=== PATIENT | female | born 1960 | race Caucasian/White ===

== ENCOUNTER → 2016-03-09 | Outpatient (CLI) | payer MEDICAID, OTHER ==
[~2016-03-09] MED LIST: AMOXICILLIN 8751 TAB PO; ASPIRIN E.C. 8181 MG PO; CANA300T PO; CINNAMON500 MG PO; DESYREL 50MG50 MG PO; DIOVAN 160MG160 MG PO; DIOVAN 40MG40 MG; FISH OIL1000 MG PO; GLUCOTROL10 MG PO; HCTZ 25MG25 MG PO; LASIX 20MG TABL20 MG PO; LASIX 40MG TABL40 MG PO; LEVAQUIN 5500 MG/TA1 PO; LIPITOR 10MG10 MG PO; LIPITOR20 MG PO; LOPRESSOR 550 MG/TAB PO; MAREPA1200 MG PO; METFORMIN1000 MG PO; MULTI VITAMINS1 TAB PO; NEXIUM 40MG40 MG PO; NIASPAN500 MG PO; NORCO 325 MG-51 TAB PO; NORCO 325 MG-7.1 TAB PO; OMEPRAZOLE20 M2 PO; ONGLYZA5 MG PO; PROFERRIN ES12 MG; SYMAX-SR0.375 MG PO; TOPCARE ASPIRI325 MG PO; TYLENOL 325MG325 MG PO; ULTRAM 50MG TAB50 MG PO; VIIBRYD40 MG PO; VITAMIN B121000 MC2 PO; VITAMIN D31000 IU PO; VTAMINC250TA; XANAX .25M0.25 MG/TA PO; XARELTO20 MG PO
== END ==
LOC: EUO 15:30
DX: Z53.9 Procedure and treatment not carried out, unspecified reason (principal)

== ENCOUNTER 2016-03-23 16:00 | Outpatient (RCR) | payer MEDICAID ==
[2016-02-22 16:21] VITALS: BP 151/63; PULSE 80; TEMP 98.4
[2016-03-02 16:13] VITALS: BP 173/80; PULSE 75; TEMP 98.1
[2016-03-09 16:55] VITALS: BP 178/83; PULSE 77; TEMP 97.8
== END 2016-03-25 09:50 | disposition still patient (30) ==
LOC: EUO 16:00
DX: Z48.00 Encounter for change or removal of nonsurgical wound dressing (principal); M14.672 Charcot's joint, left ankle and foot; E11.621 Type 2 diabetes mellitus with foot ulcer; L97.529 Non-pressure chronic ulcer of other part of left foot with unspecified severity
CPT/HCPCS: 13919; 14933; 17717; 17719; 18867; 27516; A6207; A6209; A6212; G0463; Q4101

== ENCOUNTER → 2016-03-25 | Outpatient (CLI) | payer MEDICAID | LOC: WCC 10:06 | DX: L02.612 Cutaneous abscess of left foot (principal); E11.610 Type 2 diabetes mellitus with diabetic neuropathic arthropathy; E11.621 Type 2 diabetes mellitus with foot ulcer | CPT/HCPCS: 17717; 27517; A6207; A6212; G0463 ==

== ENCOUNTER → 2016-04-08 | Outpatient (CLI) | payer MEDICAID | LOC: WCC 03-30 08:36 | DX: E11.621 Type 2 diabetes mellitus with foot ulcer (principal); L97.529 Non-pressure chronic ulcer of other part of left foot with unspecified severity; E11.610 Type 2 diabetes mellitus with diabetic neuropathic arthropathy; L02.612 Cutaneous abscess of left foot | CPT/HCPCS: 18867; 27517; A6207; A6209; G0463 ==

== ENCOUNTER → 2016-04-15 | Outpatient (CLI) | payer MEDICAID | LOC: WCC 10:25 | DX: E11.621 Type 2 diabetes mellitus with foot ulcer (principal); L97.529 Non-pressure chronic ulcer of other part of left foot with unspecified severity; E11.610 Type 2 diabetes mellitus with diabetic neuropathic arthropathy | CPT/HCPCS: 17717; 27510; A6197; A6212; G0463 ==

== ENCOUNTER → 2016-04-25 | Outpatient (CLI) | payer MEDICAID | LOC: WCC 11:12 | DX: E11.621 Type 2 diabetes mellitus with foot ulcer (principal); L97.529 Non-pressure chronic ulcer of other part of left foot with unspecified severity; E11.610 Type 2 diabetes mellitus with diabetic neuropathic arthropathy | CPT/HCPCS: 27510; A6197; G0463 ==

== ENCOUNTER → 2016-05-11 | Outpatient (CLI) | payer MEDICAID | LOC: WCC 09:40 | DX: E11.621 Type 2 diabetes mellitus with foot ulcer (principal); L97.529 Non-pressure chronic ulcer of other part of left foot with unspecified severity; E11.610 Type 2 diabetes mellitus with diabetic neuropathic arthropathy | CPT/HCPCS: 17717; 27510; A6197; A6212; G0463 ==

== ENCOUNTER → 2016-05-25 | Outpatient (CLI) | payer MEDICAID | LOC: WCC 10:59 | DX: E11.621 Type 2 diabetes mellitus with foot ulcer (principal); L97.529 Non-pressure chronic ulcer of other part of left foot with unspecified severity | CPT/HCPCS: 13919; 21064; 27510; A6021; A6197; G0463 ==

== ENCOUNTER → 2016-06-08 | Outpatient (CLI) | payer MEDICAID | LOC: WCC 11:02 | DX: E11.621 Type 2 diabetes mellitus with foot ulcer (principal); L97.529 Non-pressure chronic ulcer of other part of left foot with unspecified severity; L02.612 Cutaneous abscess of left foot | CPT/HCPCS: 17717; 18806; 27517; A6197; A6207; A6212; G0463 ==

== ENCOUNTER → 2016-06-16 | Outpatient (CLI) | payer MEDICAID | LOC: WCC 10:01 | DX: E11.621 Type 2 diabetes mellitus with foot ulcer (principal); E11.610 Type 2 diabetes mellitus with diabetic neuropathic arthropathy; L97.529 Non-pressure chronic ulcer of other part of left foot with unspecified severity | CPT/HCPCS: 13919; 17717; 27517; A6207; A6212; G0463 ==

== ENCOUNTER → 2016-06-22 | Outpatient (CLI) | payer MEDICAID | LOC: WCC 10:33 | DX: E11.621 Type 2 diabetes mellitus with foot ulcer (principal); E11.610 Type 2 diabetes mellitus with diabetic neuropathic arthropathy; L97.529 Non-pressure chronic ulcer of other part of left foot with unspecified severity | CPT/HCPCS: 13919; 17716; 27510; 27517; A6197; A6207; A6212; G0463 ==

== ENCOUNTER → 2016-07-06 | Outpatient (CLI) | payer MEDICAID | LOC: WCC 08:53 | DX: E11.621 Type 2 diabetes mellitus with foot ulcer (principal); E11.610 Type 2 diabetes mellitus with diabetic neuropathic arthropathy | CPT/HCPCS: 13919; 18867; 27517; A6207; A6209; G0463 ==

== ENCOUNTER → 2016-07-20 | Outpatient (CLI) | payer MEDICAID | LOC: WCC 09:07 | DX: E11.621 Type 2 diabetes mellitus with foot ulcer (principal); E11.610 Type 2 diabetes mellitus with diabetic neuropathic arthropathy | CPT/HCPCS: 17716; A6212 ==

== ENCOUNTER → 2016-08-16 | Outpatient (CLI) | payer MEDICARE, MEDICAID | LOC: WCC 09:49 | DX: E11.610 Type 2 diabetes mellitus with diabetic neuropathic arthropathy (principal) | CPT/HCPCS: 13919; 17717; 27516; A6207; A6212; G0463 ==

== ENCOUNTER → 2016-08-23 | Outpatient (CLI) | payer MEDICARE, MEDICAID | LOC: WCC 08:24 | DX: E11.621 Type 2 diabetes mellitus with foot ulcer (principal); E11.610 Type 2 diabetes mellitus with diabetic neuropathic arthropathy | CPT/HCPCS: 13919; 16847; 17716; 27516; A6207; A6212; G0463 ==

== ENCOUNTER → 2016-08-31 | Outpatient (CLI) | payer MEDICARE, MEDICAID | LOC: WCC 09:47 | DX: E11.621 Type 2 diabetes mellitus with foot ulcer (principal); E11.610 Type 2 diabetes mellitus with diabetic neuropathic arthropathy | CPT/HCPCS: 13919; 17716; A6212; G0463 ==

== ENCOUNTER → 2016-09-08 | Outpatient (CLI) | payer MEDICARE, MEDICAID | LOC: WCC 09:37 | DX: E11.621 Type 2 diabetes mellitus with foot ulcer (principal); L97.529 Non-pressure chronic ulcer of other part of left foot with unspecified severity; M14.672 Charcot's joint, left ankle and foot | CPT/HCPCS: 13919; 17717; 27516; A6207; A6212; G0463 ==

== ENCOUNTER → 2016-09-15 | Outpatient (CLI) | payer MEDICARE, MEDICAID | LOC: WCC 10:30 | DX: E11.621 Type 2 diabetes mellitus with foot ulcer (principal); L97.529 Non-pressure chronic ulcer of other part of left foot with unspecified severity; M14.672 Charcot's joint, left ankle and foot | CPT/HCPCS: 13919; 17716; 27516; A6207; A6212; G0463 ==

== ENCOUNTER → 2016-09-22 | Outpatient (CLI) | payer MEDICARE, MEDICAID | LOC: WCC 12:44 | DX: E11.621 Type 2 diabetes mellitus with foot ulcer (principal); L97.529 Non-pressure chronic ulcer of other part of left foot with unspecified severity | CPT/HCPCS: 13919; 17717; 27516; A6207; A6212; G0463 ==

== ENCOUNTER → 2016-09-29 | Outpatient (CLI) | payer MEDICARE, MEDICAID | LOC: WCC 09:22 | DX: E11.621 Type 2 diabetes mellitus with foot ulcer (principal); L97.529 Non-pressure chronic ulcer of other part of left foot with unspecified severity; E11.610 Type 2 diabetes mellitus with diabetic neuropathic arthropathy | CPT/HCPCS: 13919; 17716; A6212; G0463 ==

== ENCOUNTER → 2016-10-05 | Outpatient (CLI) | payer MEDICARE, MEDICAID | LOC: WCC 10:11 | DX: E11.621 Type 2 diabetes mellitus with foot ulcer (principal); L97.529 Non-pressure chronic ulcer of other part of left foot with unspecified severity; M14.672 Charcot's joint, left ankle and foot | CPT/HCPCS: 13919; 17717; 27517; A6207; A6212 ==

== ENCOUNTER → 2016-10-21 | Outpatient (CLI) | payer MEDICARE, MEDICAID | LOC: WCC 10-19 08:51 | DX: E11.621 Type 2 diabetes mellitus with foot ulcer (principal); L97.529 Non-pressure chronic ulcer of other part of left foot with unspecified severity; M14.672 Charcot's joint, left ankle and foot; L02.612 Cutaneous abscess of left foot | CPT/HCPCS: 16847; 17716; 17717; 27516; A6207; A6212 ==

== ENCOUNTER → 2016-10-28 | Outpatient (CLI) | payer MEDICARE, MEDICAID | LOC: WCC 09:06 | DX: E11.621 Type 2 diabetes mellitus with foot ulcer (principal); M14.672 Charcot's joint, left ankle and foot | CPT/HCPCS: 17717; 27516; A6207; A6212 ==

== ENCOUNTER → 2016-11-04 | Outpatient (CLI) | payer MEDICARE, MEDICAID | LOC: WCC 09:02 | DX: E11.621 Type 2 diabetes mellitus with foot ulcer (principal); L97.509 Non-pressure chronic ulcer of other part of unspecified foot with unspecified severity; M14.672 Charcot's joint, left ankle and foot | CPT/HCPCS: 17716; A6212 ==

== ENCOUNTER → 2016-11-11 | Outpatient (CLI) | payer MEDICARE, MEDICAID | LOC: WCC 11:03 | DX: E11.621 Type 2 diabetes mellitus with foot ulcer (principal); L97.529 Non-pressure chronic ulcer of other part of left foot with unspecified severity; M14.672 Charcot's joint, left ankle and foot | CPT/HCPCS: 18867; 27517; A6207; A6209 ==

== ENCOUNTER → 2016-11-18 | Outpatient (CLI) | payer MEDICARE, MEDICAID, OTHER | LOC: WCC 11-17 08:47 | DX: E11.621 Type 2 diabetes mellitus with foot ulcer (principal); M14.672 Charcot's joint, left ankle and foot | CPT/HCPCS: 13919; G0463 ==

== ENCOUNTER → 2016-11-25 | Outpatient (CLI) | payer MEDICARE, MEDICAID | LOC: WCC 11-21 09:48 | DX: E11.621 Type 2 diabetes mellitus with foot ulcer (principal); L97.529 Non-pressure chronic ulcer of other part of left foot with unspecified severity; M14.672 Charcot's joint, left ankle and foot | CPT/HCPCS: 17717; A6212; G0463 ==

== ENCOUNTER → 2016-12-02 | Outpatient (CLI) | payer MEDICARE, MEDICAID | LOC: WCC 08:35 | DX: E11.621 Type 2 diabetes mellitus with foot ulcer (principal); L97.529 Non-pressure chronic ulcer of other part of left foot with unspecified severity | CPT/HCPCS: 17717; A6212; G0463 ==

== ENCOUNTER → 2016-12-09 | Outpatient (CLI) | payer MEDICARE, MEDICAID | LOC: WCC 13:08 | DX: E11.621 Type 2 diabetes mellitus with foot ulcer (principal); L97.529 Non-pressure chronic ulcer of other part of left foot with unspecified severity; M14.672 Charcot's joint, left ankle and foot | CPT/HCPCS: 17716; A6212; G0463 ==

== ENCOUNTER → 2016-12-16 | Outpatient (CLI) | payer MEDICARE, MEDICAID | LOC: WCC 12-15 10:21 | DX: E11.621 Type 2 diabetes mellitus with foot ulcer (principal); L97.529 Non-pressure chronic ulcer of other part of left foot with unspecified severity; M14.672 Charcot's joint, left ankle and foot | CPT/HCPCS: 17717; 27510; A6197; A6212; G0463 ==

== ENCOUNTER → 2017-05-19 | Outpatient (CLI) | payer MEDICARE | LOC: MC.RAD 02-06 13:40 | DX: Z12.31 Encounter for screening mammogram for malignant neoplasm of breast (principal) ==

== ENCOUNTER → 2018-06-12 | Outpatient (CLI) | payer MEDICARE, MEDICAID | LOC: MC.RAD 10:03 | DX: Z12.31 Encounter for screening mammogram for malignant neoplasm of breast (principal) ==

== ENCOUNTER → 2018-06-20 | Outpatient (CLI) | payer MEDICARE, MEDICAID | LOC: COL.VAS 13:37 | DX: Z01.810 Encounter for preprocedural cardiovascular examination (principal); I08.0 Rheumatic disorders of both mitral and aortic valves ==

== ENCOUNTER → 2018-06-27 | Outpatient (CLI) | payer MEDICARE, MEDICAID ==
[~2018-06-27] VITALS: Ht 167.6 cm; Wt 118.8 kg
[~2018-06-27] MED LIST changes: +ATACAND32 MG PO; +JANUVIA 100MG100 MG PO; +LIPITOR 80MG80 MG PO; +NEXIUM 20MG20 MG PO; +PRILOSEC 20MG20 MG PO; +TOPROL XL100 MG PO
[2018-06-27 11:30] VITALS: BP 213/111; PULSE 64
--- NOTE | 2018-06-27 11:45 | NUR ---
bp rechecked several times. 227/106, 235/112, 232/115. Informed Dr Bauman of pts bp. States he is ok to proceed.
[2018-06-27 13:10] VITALS: BP 225/107; PULSE 58
[2018-06-27 13:48] LABS: GLUCOSE,PLEURAL FLUID 85 mg/dL
[2018-06-27 13:49] LABS: PLEURAL FLUID RBC 0 /mm3 (0-0); PLEURAL FLUID WBC 665 /mm3; TOTAL PROTEIN,PLEURAL FLUID < 2.0 gm/dL
[2018-06-27 13:53] LABS: PLEURAL FLUID APPEARANCE CLEAR; PLEURAL FLUID COLOR YELLOW
== END ==
LOC: COL.RAD 11:13
PROVIDERS: Internal Medicine
DX: J90 Pleural effusion, not elsewhere classified (principal)

== ENCOUNTER 2018-07-19 12:48 | Inpatient (IN) | payer MEDICARE, MEDICAID ==
[~2018-07-19] VITALS: Ht 167.6 cm; Wt 111.4 kg
[~2018-07-19 12:48] MED LIST changes: +APRESOLINE 25MG25 MG PO; +LOPRESSOR100 MG PO; +NORVASC2.5 MG PO; -TOPROL XL100 MG PO; +VENTOLIN0.09 MG IH
--- NOTE | 2018-07-19 17:10 | NUR ---
Report from ARLETTE Zavala. Pt brought from Room 342 to 340 via bed.
--- NOTE | 2018-07-19 17:14 | NUR ---
Removed pt's home meds from room/belongnings: yellow and purple am/pm 7 day pill sorter, prescription bottle of hydralazine, and ventolin inhaler. To med room bin for safe keeping.
[2018-07-19 18:15] VITALS: BP 140/55; PULSE 68; TEMP 99.9
[2018-07-19 19:38] VITALS: BP 146/55; PULSE 68; TEMP 99.9
--- NOTE | 2018-07-19 19:53 | NUR ---
Pt's sister and sister's visited and left. Pt given [place] for pain. Report to ARLETTE Bailey. Pt in bed with alarm on. Call lt in reach.
[2018-07-20 05:25] VITALS: BP 147/58; PULSE 56; TEMP 98.3
--- NOTE | 2018-07-20 05:30 | NUR ---
BLOOD SUGAR 60. TREATED WITH OJ. PT ALITTLE CONFUSED, CLAMMY.
--- NOTE | 2018-07-20 06:12 | NUR ---
BLOOD SUGAR 64. GAVE OJ AND PEANUT BUTTER. PT MOANING LT STUMP VERY PAINFUL. ELEVATED ON PILLOWS. SEE MAR FOR PAIN MED GIVEN.
--- NOTE | 2018-07-20 06:41 | NUR ---
ACCUCHECK NOW 79. PT RESTING AT THIS TIME.
--- NOTE | 2018-07-20 10:30 | NUR ---
Patient is sitting up in the wheel chair. She got up with therapy. She is very uncomfortable and is not tolerating sitting up. She keeps asking about getting her brace taken off. Explained why she has to wear it and that the ortho surgeon wants her to keep it on at all times. She is not eating well. She needs a lot of encouragement to eat and drink. No other changes at this time. Call light within reach.
--- NOTE | 2018-07-20 12:06 | NUR ---
Follow-up visit; Patient thanked [employer] for looking in on her again today and for offering her blessings.
[2018-07-20 16:01] VITALS: BP 137/63; PULSE 55; TEMP 97.9
--- NOTE | 2018-07-20 16:50 | NUR ---
At 1600 patients blood glucose was 51. She had some ice cream and 1/2 a protein shake. At 1630 her glucose only came up to 54. One amp of D50 given at this time. Discussed with patient the importance of eating her meals. She is drowsy at this time and is not able to answer questions appropriately. Explained once she eats and is more awake she can have something for pain. She continues to have pain to her back and buttock area. Encouraged her to turn off her backside throughout the day. No other changes at this time. Call light within reach. Will continue to monitor.
--- NOTE | 2018-07-20 18:00 | NUR ---
Patient glucose is up to 132. She is eating at this time. She is more alert now and pain seems better controlled at this time. Did not give norco at this time. No complaints of nausea. She had family here this afternoon. Her accu checks have been changed to q4 for today and insulin has been reduced to low dose sliding scale. No other changes at this time. Call light within reach.
--- NOTE | 2018-07-20 21:00 | NUR ---
REPORT RECEIVED. 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 ASSESSMENT COMPLETE. NOTED TO HAVE REDNESS TO COCCYX AREA-NO OPEN AREAS NOTED. C/O PAIN IN THIS AREA-TEACHING DONE ON IMPORTANCE OF FREQUENT REPOSITIONING. APPLIED BARRIER TO AREA AND TURNED TO RIGHT SIDE WITH PILLOW SUPPORTS. TEACHING DONE ON EVERY TWO HOUR TURNING TO KEEP PRESSURE OFF THIS AREA. VERBALIZES UNDERSTANDING. ALSO C/O PAIN TO LEFT LOWER EXTREMITY. BRACE REMOVED AND REPLACED IT HAD SHIFTED. FRESH ICE PACK APPLIED. NORCO GIVEN PER DR ORDER. VOIDING WITHOUT DIFFICULTY. PASSING GAS. DENIES QUESTIONS AT THIS TIME. BED IN LOW POSITION, ALARM ON, WHEELS LOCKED AND CALL LIGHT WITHIN REACH. WILL MONITOR.
--- NOTE | 2018-07-21 04:25 | NUR ---
GLUCOSE 59. CONFUSED CALLING SELF AN IDIOT STATING "IM CRAZY." GIVEN ORANGE JUICE 240MLS AND CRACKERS WITH PEANUT BUTTER.
[2018-07-21 04:55] VITALS: BP 148/65; PULSE 62; TEMP 98
--- NOTE | 2018-07-21 06:20 | NUR ---
GLUCOSE LEVEL SLOWLY NORMALIZED. GIVEN A TOTAL OF 360 OF ORANGE JUICE AND CRACKERS WITH PEANUT BUTTER. 0620 GLUCOSE 82. WILL MONITOR.
[2018-07-21 08:12] LABS: BASO % 0.6 % (0.0-2.0); EOS # 0.2 (0.0-0.7); EOS % 3.2 % (0-4.0); GRAN # 5.4 (1.4-6.5); GRAN % 74.2 % (42.2-75.2); MEAN CELL VOLUME 83 fl (80.0-100.0); MEAN CORPUSCULAR HEMOGLOBIN 24 pg (27.0-31.0); MEAN CORPUSCULAR HGB CONC 29 g/dl (33.0-37.0); MEAN PLATELET VOLUME 9.6 fl (7.4-10.4); MONO # 0.5 (0.1-0.6); MONO % 7.3 % (1.7-9.3); PLATELET COUNT 191 K/mm3 (130-400); RED BLOOD COUNT 2.89 M/mm3 (4.10-5.30); REDCELL DISTRIBUTION WIDTH-CV 15.6 % (11.5-14.5)
[2018-07-21 08:24] LABS: CALCIUM 8.3 mg/dL (8.4-10.2); MAGNESIUM 2.4 mg/dL (1.6-2.3); POTASSIUM 5.5 mmol/L (3.4-5.0)
[2018-07-21 08:26] LABS: CREATININE, serum 5.24 (0.52-1.25)
--- NOTE | 2018-07-21 09:05 | NUR ---
SW attempted to meet with the patient; the patient was not in his room. SW will attempt at a later time.
--- NOTE | 2018-07-21 11:57 | NUR ---
Report from ARLETTE Kline. Pt ate very little breakfast in bed, needed to toilet, max one assist to BSC pivoted with gait belt, assist with dressing, two assist off BSC then switched to WC. Attended therapies. Does have some confusion, cog delays, pleasant, alert, partially oriented at times. Moderate cues for safety. Immobilizer and moon wrap to Left stump in place.
--- NOTE | 2018-07-21 13:29 | NUR ---
PHILLIP met with the patient to discuss a discharge plan. The patient lives alone about a mile outside of [place] and has a [place] address. The patient has a walker and a knee walker. The patient's PCP is Dr. Vallejo. However, once Dr. Vallejo moves; her PCP will be Dr. Coyle. The patient receives her medications from [facility] and reports no difficulties obtaining them. The patient does not have advanced directives in the EMR, but reports she does have them completed. PHILLIP will continue to follow.
--- NOTE | 2018-07-21 13:42 | NUR ---
Sister and sister in law visiting. Pt to chair with alarm on.
--- NOTE | 2018-07-21 13:43 | NUR ---
Returned double sided weekly pill sorter, ventolin inhaler, and hydralazine pill bottle to sister to take home.
[2018-07-21 17:07] VITALS: BP 139/66; PULSE 57; TEMP 98.1
--- NOTE | 2018-07-21 17:53 | NUR ---
Second "Rehab Cocktail" of OJ, AJ, & Prune Juice w/ Miralax given. Pt shaking, BG stable, loosened immobilizer d/t LLE pain, pt refusing suppository at this time.
--- NOTE | 2018-07-21 20:00 | NUR ---
REPORT RECEIVED. 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 ASSESSMENT COMPLETE. VS HAVE BEEN STABLE. UP TO TOILET USING LIFT-LARGE BOWL MOVEMEMNT-FORMED/SOFT. [id number] DIFFICULTY. ASSISTED WITH DRESSING FOR BED. BEDSIDE GLUCOSE 143. REFUSING DINNER-STATED "THE SIGHT MAKES ME WANT TO PUKE." DID HAVE SOME CRACKERS AND PEANUT BUTTER, CHIPS AND A GLUCERNA SHAKE. ENCOURAGED FLUID INTAKE. DID DRINK ABOUT 120MLS OF WATER. STILL SEEMS CONFUSED-ASKING "WHERE AM I AT" OR "AM I IN [place]." C/O "ITCHY SKIN" DID APPLY LOTION TO BACK, ARMS, THIGHS AND RIGHT LEG. STATES IT HAS HELPED. STATES PAIN IS GETTING BETTER SINCE EARLIER DOSE OF NORCO. REPOSITIONED ON RIGHT SIDE USING PILLOWS. FRESH ICE APPLIED TO LEFT KNEE. BED IN LOW POSITION, WHEELS LOCKED, CALL LIGHT WITHIN REACH WITH REMINDER HOW TO USE. BED ALARM ON. WILL MONITOR.
[2018-07-21 20:27] VITALS: BP 149/70; PULSE 61; TEMP 98.2
--- NOTE | 2018-07-21 20:51 | NUR ---
Pt shaking since around supper time. Repeats, "Oh, Jonn" and at shift change pt asked nurse not to leave her. Enc given, used lift to get to toilet, then pt had cont Lg BM, undressed and donned gown for lilly, returned to bed with lift and assist of night nurse, immobilizer in place. Pt drank marques glucerna mixed with a marques ice cream for supper with meds. Air mattress on bed, alarm on. Pt still confused. Report to ARLETTE Kline including needing to collect random urine for lab.
--- NOTE | 2018-07-22 01:00 | NUR ---
UP TO BATHROOM USING LIFT. STATES SHE NEEDS TO HAVE A BOWEL MOVEMENT. DENIES PAIN-ONLY EXTREME URGE TO HAVE A BOWEL MOVEMENT. PASSED A LOT OF GAS. LARGE LOOSE BOWEL MOVEMENT. VOIDED-SENT TO LAB.
--- NOTE | 2018-07-22 04:07 | NUR ---
HAS BEEN MUCH MORE ALERT AND ORIENTED THIS SHIFT COMPARED TO 07/21. DENIES PAIN. NO HYPOGLYCEMIC EPISODES. DID NOT EAT SUPPER BUT IS DRINKING MORE FLUIDS. HAS BEEN UP TO TOILET USING LIFT-TOLERATED WELL. IMMOBOLIZER TO LEFT LOWER EXTREMITY ADJUSTED- ICE APPLIED. DENIES ANY NEEDS. WILL MONITOR.
[2018-07-22 05:00] VITALS: BP 146/64; PULSE 56; TEMP 97.9
[2018-07-22 07:46] LABS: CALCIUM 8.5 mg/dL (8.4-10.2)
[2018-07-22 07:47] LABS: CREATININE, serum 4.56 (0.52-1.25)
[2018-07-22 07:48] LABS: POTASSIUM 6.1 mmol/L (3.4-5.0)
--- NOTE | 2018-07-22 07:58 | NUR ---
Critical labs called to Dr. Roger, see new orders.
--- NOTE | 2018-07-22 08:23 | NUR ---
Report from ARLETTE Kline. Another staff informed this nurse that pt was crying this morning, entered room and pt not tearful, but uncomfortable from LLE, loosened immobilizer to LLE and applied lotion as pt states it itched. Enc pt to eat breakfast, had only yogurt without fruit or granola. Agreeable to shake, drank marques glucerna/ice cream blended with cottage cheese. Pt called to toilet, used lift to go to toilet, passed lots of gas. Continent.
--- NOTE | 2018-07-22 11:59 | NUR ---
Dr. Roger saw pt in room.
--- NOTE | 2018-07-22 12:32 | NUR ---
Sister and in law visiting, they assisted pt with ordering meals for tomorrow. Pt toileted with lift, returned to wheelchair. Pt groomed at sink.
[2018-07-22 17:24] VITALS: BP 173/85; PULSE 65; TEMP 98.3
--- NOTE | 2018-07-22 19:53 | NUR ---
Near shift change pt became anxious, states she can't catch her breath, labored, restless, LCTA when sitting upright at 90* on edge of bed, enc focused breathing, SpO2 >92%, instructed to use I.S. Yesterday pt had similar episode, and asked nurse not to leave her. Dr. Castellano notified and ativan ordered. Brought fan for pt. Pt had requested, "Give me something to just knock me out." Report to ARLETTE Carrillo.
--- NOTE | 2018-07-22 20:00 | NUR ---
Pt bedresting at 30* quietly watching TV, requested lights off.
--- NOTE | 2018-07-22 20:15 | NUR ---
HS meds all reviewed and given. Patient up via lift to bathroom and back to bed. Reviewed new med ativan to give for anxiousness/sleep. Immobilizer LLE CDI.
--- NOTE | 2018-07-22 22:30 | NUR ---
UP via lift to bathroom and voids/back to bed. IVF finished infusing. Denies further needs.
--- NOTE | 2018-07-23 01:58 | NUR ---
PATIENT REMAINS AWAKE. UP TO BATHROOM VIA LIFT AND TO RECLINER. DENIES FURTHER NEEDS.
[2018-07-23 03:35] VITALS: BP 164/91; PULSE 70; TEMP 98
--- NOTE | 2018-07-23 04:13 | NUR ---
PATIENT HAS BEEN AWAKE THROUGH THE NIGHT UP TO BATHROOM 6 TIMES VIA LIFT TO VOID. ENCOURAGED TO ATTEMPT REST BACK IN BED/DONE. TYLENOL GIVEN.
--- NOTE | 2018-07-23 05:40 | NUR ---
PATIENT NOW RESTING IN BED WITH EYES CLOSED. REPORTS SHORTNESS OF BREATH EARLIER AND RT INTO GIVEN TREATMENT.
[2018-07-23 07:33] LABS: BASO % 0.5 % (0.0-2.0); EOS # 0.2 (0.0-0.7); EOS % 2.6 % (0-4.0); GRAN # 6.2 (1.4-6.5); GRAN % 79.3 % (42.2-75.2); LYMPH # 0.7 (1.2-3.4); LYMPH % 9.1 % (20.0-51.0); MEAN CELL VOLUME 83 fl (80.0-100.0); MEAN CORPUSCULAR HGB CONC 29 g/dl (33.0-37.0); MEAN PLATELET VOLUME 9.5 fl (7.4-10.4); MONO # 0.6 (0.1-0.6); MONO % 7.9 % (1.7-9.3); PLATELET COUNT 233 K/mm3 (130-400); REDCELL DISTRIBUTION WIDTH-CV 15.9 % (11.5-14.5)
[2018-07-23 07:44] LABS: HEMATOCRIT 25.6 % (37.0-47.0); HEMOGLOBIN 7.5 g/dl (12.5-16.0); MEAN CORPUSCULAR HEMOGLOBIN 24 pg (27.0-31.0)
[2018-07-23 07:45] LABS: CALCIUM 8.7 mg/dL (8.4-10.2); CREATININE, serum 3.65 (0.52-1.25); POTASSIUM 4.9 mmol/L (3.4-5.0)
--- NOTE | 2018-07-23 15:44 | NUR ---
Called Dr. Huntley reporting elevated BP - left message. Awaiting a return call.
[2018-07-23 15:57] VITALS: BP 203/75; BP 211/85; PULSE 100; PULSE 84; TEMP 98.1
--- NOTE | 2018-07-23 16:03 | NUR ---
NEW ORDER RECEIVED PER DR. RUBIN FOR ELEVATED SBP >180. SEE NEW ORDERS.
--- NOTE | 2018-07-23 18:04 | NUR ---
Patient has been reporting difficulty with breathing and pulse ox was taken showing oxygen of 93% and greater. Received a new order for one time dose of ativan today due to anxiety and patient did get some nausea following. See new orders per Dr. Huntley to restart xanax PRN and change patient from accuchecks Q4Hrs to ACHS since her numbers have been leveling off. Will continue to monitor.
[2018-07-23 18:15] VITALS: BP 190/67
[2018-07-23 19:06] VITALS: BP 200/81
[2018-07-23 19:14] VITALS: BP 200/81
--- NOTE | 2018-07-23 22:00 | NUR ---
Patient report received from ARLETTE Cox at this time. Per report patient's BP is elevated, preethi recheck before bed. No other needs at this time.
[2018-07-24 00:30] VITALS: BP 171/78; PULSE 71
[2018-07-24 05:20] VITALS: BP 167/72; PULSE 68; TEMP 98.1
--- NOTE | 2018-07-24 06:54 | NUR ---
Patient report given to ARLETTE Peng. Patient is resting comfortably in bed, no needs observed.
--- NOTE | 2018-07-24 07:51 | NUR ---
Report from ARLETTE Gustafson. Pt tearful this morning, stating "I don't know why I'm here," and "this isn't me" referring to how "messy" her room is. Assisted with emotional support, reason for rehab, straightening room and putting some things away.
[2018-07-24 08:38] LABS: CREATININE, serum 3.33 (0.52-1.25); POTASSIUM 4.7 mmol/L (3.4-5.0)
--- NOTE | 2018-07-24 12:56 | NUR ---
Behavioral Health called, Dr. Goldberg to come see pt on Tuesday 07/25
[2018-07-24 14:11] VITALS: BP 159/58
--- NOTE | 2018-07-24 14:41 | NUR ---
PHILLIP met with the pt to discuss the recommendation for home health services. The pt plans to stay with her sister in [place] upon discharge. Therefore, SW provided a list of home health agencies from [employer] that serve the [place] area. The pt wants to look over the choices with her sister before she makes a decision. PHILLIP will continue to follow to assist with her discharge plan.
[2018-07-24 17:17] VITALS: BP 167/64; PULSE 66; TEMP 98.3
--- NOTE | 2018-07-24 19:54 | NUR ---
Pt less anxious rest of shift. Still unreasonably apologetic about things- even if it's not her fault. Did not observe confusion after morning anxiety episode, then alert, pleasant, cooperative. Immobilizer in place, dressing intact. Fluid restriction followed. Gave tylenol thru shift and pain rated 5/10. Family visited this evening. Pt did not have anxiety episode at end of shift as she did over the weekend. Report to ARLETTE Bill. Pt ref jason in sprite, states it causes N/V. Appetite better today.
--- NOTE | 2018-07-24 20:30 | NUR ---
Shift assessment complete. Patient awake, dangling at bedside. States, 5/10 pain in left stump. Prn pain medication given. Denies further needs at this time. Will continue to assess.
[2018-07-25 05:06] VITALS: BP 155/65; PULSE 63; TEMP 98
--- NOTE | 2018-07-25 05:12 | NUR ---
Patient in bed, dangling at bedside. States, pain 4/10 in left leg. Declined pain medication. Medication list given to patient, per her request. Denies further needs at this time. Will continue to monitor.
[2018-07-25 06:35] LABS: BASO # 0.1 (0.0-0.2); EOS # 0.2 (0.0-0.7); GRAN # 3.6 (1.4-6.5); GRAN % 61.9 % (42.2-75.2); LYMPH # 1.4 (1.2-3.4); LYMPH % 23.8 % (20.0-51.0); MEAN CELL VOLUME 85 fl (80.0-100.0); MEAN CORPUSCULAR HGB CONC 29 g/dl (33.0-37.0); MEAN PLATELET VOLUME 9.8 fl (7.4-10.4); MONO # 0.5 (0.1-0.6); MONO % 8.8 % (1.7-9.3); PLATELET COUNT 247 K/mm3 (130-400); RED BLOOD COUNT 2.86 M/mm3 (4.10-5.30); REDCELL DISTRIBUTION WIDTH-CV 16.7 % (11.5-14.5)
[2018-07-25 06:39] LABS: HEMATOCRIT 24.3 % (37.0-47.0); MEAN CORPUSCULAR HEMOGLOBIN 24 pg (27.0-31.0)
[2018-07-25 06:45] LABS: CALCIUM 8.6 mg/dL (8.4-10.2); CREATININE, serum 3.2 (0.52-1.25); POTASSIUM 4.6 mmol/L (3.4-5.0)
--- NOTE | 2018-07-25 14:57 | NUR ---
SW met with the pt to present and discuss the IPR team conference note. The pt did not have any questions or concerns at this time. SW will continue to follow.
--- NOTE | 2018-07-25 15:09 | NUR ---
Peripheral IV catheter was removed from patient's left forearm and patient tolerated with no discomfort reported. No signs of infection observed to site.
[2018-07-25 18:24] VITALS: BP 152/52; PULSE 74; TEMP 98.3
--- NOTE | 2018-07-25 18:27 | NUR ---
Jose E was a one person pivot transfer today with staff. Dr. Goldberg stopped by this evening see new orders for mood meds. Patient was less anxious this shift.
--- NOTE | 2018-07-25 21:35 | NUR ---
2:1 TRANSER ASSIST TO TOILET PER W/C. PT EXPRESSES NEGATIVE THOUGHT ABOUT SELF. VERY DEFEATED. PROVIDED SOME EMOTIONAL SUPPORT. READY FOR BED. SITTING ON SIDE OF BED. HAS ANXIETY ISUES. NEW MEDS NOTED. CALL LIGHT IN REACH.
[2018-07-26 05:48] VITALS: BP 167/68; PULSE 63; TEMP 97.9
--- NOTE | 2018-07-26 05:48 | NUR ---
02 SAT 85%. O2 SET ON 2L NOW. UP TO 91%.
[2018-07-26 08:05] LABS: CALCIUM 8.8 mg/dL (8.4-10.2); CREATININE, serum 3.27 (0.52-1.25); POTASSIUM 4.5 mmol/L (3.4-5.0)
[2018-07-26 16:27] VITALS: BP 157/58; PULSE 66; TEMP 98.1
--- NOTE | 2018-07-26 19:42 | NUR ---
Jose E attended all therapies today, tolerated diet well and was interactive with staff with less anxiety today. Patient was a one person assist with pivot transfers. She was independent on grooming and eating today. She did have some pain to stump and was given prn pain meds with good effect. Did not require any insulin today blood sugars were stable. Will continue to monitor.
[2018-07-27 05:56] VITALS: BP 156/58; PULSE 64; TEMP 98.8
--- NOTE | 2018-07-27 07:00 | NUR ---
ASSISTED PT TO BR. PIVOT TRANSFER TO THEN TO TOILET. DEEPTI WELL. GOOD SPIRITS. BACK TO . READY FOR BREAKFAST.
[2018-07-27 16:04] VITALS: BP 153/54; PULSE 64; TEMP 98.2
--- NOTE | 2018-07-27 20:00 | NUR ---
HS meds along with pain med reviewed and given. Patient sits up on side of bed and denies further needs. Declines knee hi teds off RLE. Immobilizer LLE CDI. Patient alert and oriented. Declines snack.
--- NOTE | 2018-07-27 20:11 | NUR ---
Report from ARLETTE Bailey. Pt to wheelchair between therapies today, family visited this lilly, pt more clear today, some word searching. Tylenol for pain. Immobilizer tightened prior to shift change. Pt pivot transferred from wc to toilet with gait belt, mod assist, grab bar, and walker. Continent of B/B, wearing pull ups. Report to ARLETTE Carrillo.
--- NOTE | 2018-07-28 03:00 | NUR ---
Patient has been resting with eyes closed. Respirations with ease.
[2018-07-28 04:04] VITALS: BP 159/67; PULSE 63; TEMP 98.1
--- NOTE | 2018-07-28 09:23 | NUR ---
NSG ASSESSMENT COMPLETED. PT VERY CHEERFUL AND PLEASANT. PT IS 1 ASSIST PIVOT TRANSFER TO WHEELCHAIR. PT IS SLIGHTLY UNSTEADY WITH TRANSFERS. PT ATE 100 % MEAL. UP TO WHEELCHAIR AND PERFORMED ADL'S WITHOUT ASSIST. IROM BRACE IN PLACE, TEDS ON RIGHT LEG UP TO KNEES. PT WAS GIVEN TYLENOL 2 TABS FOR DISCOMFORT IN LEFT LEG. CREATININE CLEARANCE TO BE STARTED THIS AM. COLLECTIONS ITEMS IN PLACE. BS THIS AM WAS 135 AND NO SSI WAS GIVEN. HEPARIN WAS GIVEN INTO ABDOMEN, ABDOMEN HAS MULTIPLE BRUISES NOTED.
--- NOTE | 2018-07-28 11:20 | NUR ---
FAMILY AND FRIENDS PRESENT AND VISITING. BS TAKEN.
--- NOTE | 2018-07-28 13:33 | NUR ---
PT SLEEPING WITH COVERS SITTING UP IN WHEELCHAIR
--- NOTE | 2018-07-28 14:50 | NUR ---
TOOK PT TO BR TO HAVE A BM. PT WAS ABLE TO STAND WITH GRAB BARS AND PIVOT ONTO COMMODE. NURSE PROVIDED CONTACT GUARD ASSIST
[2018-07-28 15:30] VITALS: BP 148/57; PULSE 65; TEMP 98.4
--- NOTE | 2018-07-28 20:00 | NUR ---
Patient rests in bed. Declines snack. HS meds all reviewed and given along with norco for burning pain LBKA. Boris hose removed RLE and SCD applied. LLE elevated on pillow.
--- NOTE | 2018-07-29 01:15 | NUR ---
PATIENT HAS BEEN RESTING IN BED WITH EYES CLOSED. RESPIRATIONS WITH EASE.
--- NOTE | 2018-07-29 05:00 | NUR ---
Patient up to the bathroom via pivot transfer to wheelchair. Hesitant and has difficulty with pulling pants/pullup up after stands from toilet. Uses grab bar. Anxious during tranfer. Transfers self back to bed with CGA/pivot transfer. Immobilizer LLE fell off and reapplied. States pain "not bad" and denies need for pain med.
[2018-07-29 05:53] VITALS: BP 157/66; PULSE 63; TEMP 98.2
--- NOTE | 2018-07-29 10:15 | NUR ---
Pt propelled in wc in [facility] calles.
--- NOTE | 2018-07-29 13:45 | NUR ---
Pt ate breakfast in bed, then toileted w/ assist, barrier cream to buttocks for redness, old skin peeling off. Family visiting at this time. Pt in wheelchair. NOREEN and gripper sock to RLE, immobilizer to LLE.
[2018-07-29 13:53] LABS: URINE TOTAL VOLUME 1775 mL
[2018-07-29 14:22] LABS: CREATININE, serum 3.29 (0.52-1.25)
--- NOTE | 2018-07-29 18:07 | NUR ---
Pt had no acute changes this shift. Friend visiting. SCD and NOREEN to RLE. Immobilizer to LLE.
--- NOTE | 2018-07-29 19:23 | NUR ---
CGA with gait belt as pt transferred OOB to , then to toilet with grab bar, voided, managed own clothing and hygiene, continent.
[2018-07-29 19:26] VITALS: PULSE 72; TEMP 98.4
[2018-07-29 20:01] VITALS: BP 174/59
[2018-07-29 21:48] VITALS: BP 147/56
--- NOTE | 2018-07-29 23:09 | NUR ---
Report received from ARLETTE Peng at [id number]. Patient noted to have high blood pressure at the beginning of the shift, but she had just transferred back into bed. This nurse administered scheduled blood pressure medications and educated patient about coming back to take her blood pressure again to see if rest and this medications had brought down her blood pressure. Upon reassessment, blood pressure noted to be within parameters. Patient denied any further needs. Will continue to monitor.
[2018-07-30 05:22] VITALS: BP 152/55; PULSE 63; TEMP 97.7
[2018-07-30 06:34] LABS: BASO # 0.1 (0.0-0.2); BASO % 0.8 % (0.0-2.0); EOS # 0.2 (0.0-0.7); EOS % 3.2 % (0-4.0); GRAN # 3.8 (1.4-6.5); GRAN % 63.7 % (42.2-75.2); LYMPH # 1.5 (1.2-3.4); LYMPH % 24.6 % (20.0-51.0); MEAN CELL VOLUME 89 fl (80.0-100.0); MEAN CORPUSCULAR HGB CONC 28 g/dl (33.0-37.0); MEAN PLATELET VOLUME 9.4 fl (7.4-10.4); MONO # 0.4 (0.1-0.6); MONO % 6.4 % (1.7-9.3); PLATELET COUNT 259 K/mm3 (130-400); RED BLOOD COUNT 2.79 M/mm3 (4.10-5.30); REDCELL DISTRIBUTION WIDTH-CV 18.6 % (11.5-14.5)
[2018-07-30 06:38] LABS: HEMATOCRIT 24.7 % (37.0-47.0); HEMOGLOBIN 6.9 g/dl (12.5-16.0); MEAN CORPUSCULAR HEMOGLOBIN 25 pg (27.0-31.0)
[2018-07-30 06:39] LABS: CALCIUM 8.8 mg/dL (8.4-10.2); CREATININE, serum 3.2 (0.52-1.25); MAGNESIUM 2.1 mg/dL (1.6-2.3); POTASSIUM 4.1 mmol/L (3.4-5.0)
--- NOTE | 2018-07-30 06:45 | NUR ---
Report given to ARLETTE Peng.
--- NOTE | 2018-07-30 11:43 | NUR ---
Pt returned from therapy sellf-proppeled in wheelchair, alarm on, in room for lunch, tylenol for pain.
[2018-07-30 15:33] VITALS: BP 169/65; PULSE 61; TEMP 98.3
--- NOTE | 2018-07-30 19:42 | NUR ---
No acute changes. Pt toileted, returned to bed, removed NOREEN, applied gripper sock and SCD to RLE. Report to ARLETTE Carrillo. Call lt in reach.
--- NOTE | 2018-07-30 19:45 | NUR ---
HS meds all reviewed and given along with norco for pain. Patient rests in bed and denies needs.
--- NOTE | 2018-07-31 02:00 | NUR ---
Patient has been resting quietly in bed with eyes closed. Respirations with ease.
--- NOTE | 2018-07-31 05:45 | NUR ---
Patient reports has been awake since 329. Up with observation via wheelchair to the bathroom and voids large amount. Manages all toileting tasks and changes pullup. Sits up in wheelchair and readies self for the day. Nurse applied michael hamilton and abraham DOWD.
[2018-07-31 05:51] VITALS: BP 153/56; PULSE 66; TEMP 98.3
--- NOTE | 2018-07-31 10:00 | NUR ---
Patient has been doing well this am. Discussed that she has not been able to have a bowel movement. Miralax given this am. Discussed giving it later but she did not want to be up in the night and needing to go. Tylenol given this am for aching, genralized. No other changes at this time.
--- NOTE | 2018-07-31 15:43 | NUR ---
PHILLIP met with the patient to introduce oneself and to set up a family meeting. The patient requested that PHILLIP contact her sister, Qiana. PHILLIP contacted Qiana, via phone, and a family meeting was scheduled for tomorrow, 07/31, at 1500. PHILLIP informed the patient and IPR Director, Yina. The patient also asked PHILLIP about home health and the list of home health agencies that was provided to her. PHILLIP reviewed the list with the patient. The patient reports that she would prefer [facility], if home health is recommended upon discharge. SW to continue to follow.
[2018-07-31 16:48] VITALS: BP 174/62; PULSE 65; TEMP 98.3
--- NOTE | 2018-07-31 19:30 | NUR ---
HS meds along with norco reviewed and given. Declines snack. Transfers self from toilet/manages pulling shorts up with difficulty. Transfers self back to bed. Declines snack or further needs. Nurse removes michael hamilton RLL and BLE elevated on pillow.
--- NOTE | 2018-07-31 22:30 | NUR ---
PATIENT RESTS WITH EYES CLOSED. RESPIRATIONS WITH EASE.
--- NOTE | 2018-08-01 04:56 | NUR ---
Patient has been resting quietly in bed through night. Respirations with ease.
[2018-08-01 05:15] VITALS: BP 154/60; PULSE 64; TEMP 98.7
--- NOTE | 2018-08-01 06:25 | NUR ---
Patient reports frequent awakenings during the night. Up to bathroom with observation and CGA while standing and back to wheelchair. Nurse applied michael hose and shoe NOEMÍ
--- NOTE | 2018-08-01 15:40 | NUR ---
PHILLIP attended a family meeting with the patient's sister and Jo. Also present was IPR Director, PT, OT, and ST. IPR Director, Yina, started by explaining the purpose of the meeting. PT, OT, and ST then discussed how the patient is doing and and the teams recommendation of a discharge for Monday, 08/04, with home health for PT/OT/assisted. The patient and patient's family were in agreeance to the plan. The team addressed concerns the patient's family had with her hemoglobin, where to obtain a gait belt, and how to receive home health or therapy in the future, after she receives her prosthetic. The families questions were all answered. PHILLIP then followed up with the patient and reviewed the IPR Team Conference Note with the patient. The patient was in agreeance to the teams recommendation of home health and confirmed that she wanted to pursue with [facility]. PHILLIP then attempted to contact Cal at [facility]. PHILLIP left a voicemail and faxed him the patient's referral. PHILLIP to continue to follow.
[2018-08-01 16:04] VITALS: BP 156/60; PULSE 64; TEMP 98.2
--- NOTE | 2018-08-01 20:00 | NUR ---
HS meds along with norco reviewed and given. Patient rests back in bed awake and alert. Pleasant. Declines snack. SCD on RLE.
--- NOTE | 2018-08-01 20:01 | NUR ---
Patient attended all therapies today and tolerated meals well. Patient was observation with transfer to the toilet, but did require CGA when returning to wheelchair as she was tired following all the daily therapy. Will continue to monitor. Patient was independent on her grooming. She was observation with putting pants on over stump and other leg. She was observation with putting shirt on. Independent with eating.
--- NOTE | 2018-08-01 23:00 | NUR ---
Rests with eyes closed. Respirations with ease.
--- NOTE | 2018-08-02 02:36 | NUR ---
Patient has been resting quietly in bed. Respirations with ease.
--- NOTE | 2018-08-02 05:45 | NUR ---
Awakened for am vitals/accu check. Denies needs.
[2018-08-02 06:00] VITALS: BP 142/57; PULSE 61; TEMP 98.9
--- NOTE | 2018-08-02 09:55 | NUR ---
Patient attended morning therapies. Tolerated breakfast well. Having some anxiety about her stump having some drainage, but she is aware that Dr. Camargo would be coming to evaluate leg today sometime. There is some pitting edema to the left upper leg and stump. She also has some edema to the right lower leg. Will continue to monitor. Patient reporting some pain 5/10 this morning to left stump and was given prn pain meds. Will continue to monitor.
--- NOTE | 2018-08-02 11:27 | NUR ---
Dr. Camargo and his assistant field hockey coach saw patient today. Kenny and stitches were removed. Patient has permission to put vehicle delivery worker on stump, but will need to have gauze covering the area for a few days due to some possible drainage from staple and stitches removal. Patient called [facility] and they will be coming in a half hour to place her with a vehicle delivery worker. Patient tolerated procedure with only minimal discomfort reported.
--- NOTE | 2018-08-02 14:34 | NUR ---
Cal, at [facility], reports that they can accept the patient for services and that he has already reached out to Angie. FISHER to inform the patient and continue to follow.
[2018-08-02 17:14] VITALS: BP 151/53; PULSE 58; TEMP 98.3
[2018-08-02 21:59] VITALS: BP 153/62; PULSE 62; TEMP 98.9
--- NOTE | 2018-08-03 00:50 | NUR ---
PT IN BED WITH HOB AT 30 DEGREE ANGLE. PT SOFTLY SNORES BUT EASILY WAKES UP. PT ADVISES THAT PT TO LEFT LOWER STUMP IS NOW AT A 3/10 AND DOES NOT NEED ANYTHING ELSE FOR PAIN. PT EASILY DRIFTS BACK TO SLEEP. CALL LIGHT WITHIN REACH.
--- NOTE | 2018-08-03 03:38 | NUR ---
PT SLEEPING/RESTING IN BED WITH HOB ELEVATED TO 30 DEGREE ANGLE. PT EASILY AWAKENS. PT DENIES PAIN OR DISCOMFORT AND HAS NO NEEDS AT THIS TIME. CALL LIGHT WITHIN REACH.
[2018-08-03 05:50] VITALS: BP 150/67; PULSE 60; TEMP 98.1
--- NOTE | 2018-08-03 05:52 | NUR ---
UNEVENTFUL NIGHT FOR PT. PT SLEPT WELL. PT AWAKE AT THIS TIME WITH NO C/O PAIN OR DISCOMFORT. PT ASSISTED TO BATHROOM AND BACK TO BED. CALL LIGHT WITHIN REACH.
[2018-08-03 07:24] LABS: BASO # 0.1 (0.0-0.2); BASO % 1.1 % (0.0-2.0); EOS # 0.2 (0.0-0.7); EOS % 3.5 % (0-4.0); GRAN # 3.8 (1.4-6.5); GRAN % 67.2 % (42.2-75.2); LYMPH # 1.3 (1.2-3.4); LYMPH % 23.1 % (20.0-51.0); MEAN CELL VOLUME 89 fl (80.0-100.0); MEAN CORPUSCULAR HGB CONC 27 g/dl (33.0-37.0); MEAN PLATELET VOLUME 9.4 fl (7.4-10.4); MONO # 0.3 (0.1-0.6); MONO % 4.6 % (1.7-9.3); PLATELET COUNT 251 K/mm3 (130-400); RED BLOOD COUNT 3.13 M/mm3 (4.10-5.30); REDCELL DISTRIBUTION WIDTH-CV 18.8 % (11.5-14.5)
[2018-08-03 07:40] LABS: CREATININE, serum 3.41 (0.52-1.25); MAGNESIUM 2.1 mg/dL (1.6-2.3); POTASSIUM 4.2 mmol/L (3.4-5.0)
[2018-08-03 07:50] LABS: HEMATOCRIT 27.8 % (37.0-47.0); HEMOGLOBIN 7.6 g/dl (12.5-16.0); MEAN CORPUSCULAR HEMOGLOBIN 24 pg (27.0-31.0)
--- NOTE | 2018-08-03 14:47 | NUR ---
Report from ARLETTE Epps. Pt made mod I for pivot transfers with wheelchair in room and calles today. Tylenol for pain. Continued fluid restriction of 1.5L. Reviewed hgb lab with pt today. 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
[2018-08-03] MEDS ORDERED: NORVASC 5MG5 MG/TAB PO (15:09)
[2018-08-03 16:12] VITALS: BP 147/57; PULSE 60; TEMP 98.2
--- NOTE | 2018-08-03 20:27 | NUR ---
Dr. Roger states he will review pt's med list for discharge tomorrow. Continue a 2L fluid restriction at home. Pt doffed engineering faculty and nurse assessed incision, small oozing blood from medial aspect of incision, blotted, applied more steris to incision, edu about wound care, placed non-adherent dressing and secured with paper tape, pt donned engineering faculty, no wrinkles palpated through engineering faculty. Pt made mod I with wheelchair today, voices nerves about going home, gave encouragement.
--- NOTE | 2018-08-03 20:30 | NUR ---
Shift assessment complete. Patient in bed, awake. States, 7/10 in left stump. Prn pain medication given per request. Immobilizer on left stump for bedtime. No further needs at this time. Will continue to monitor.
--- NOTE | 2018-08-04 01:29 | NUR ---
Patient in bed, awake. States 3/10 pain in left stump. Declines pain medication. Will continue to monitor.
[2018-08-04 06:03] VITALS: BP 155/57; PULSE 60; TEMP 98.1
--- NOTE | 2018-08-04 08:26 | NUR ---
Patient resting in wheelchair at this time and is Independent in room using wheelchair. She is packing her items up so she will be ready to leave today to go home to her sister's house. Patient denies questions at this time.
[2018-08-04] MEDS ORDERED: TYLENOL 325MG325 MG PO (09:22)
[2018-08-04] MEDS ORDERED: COLACE 100100 MG/CAP PO (09:24)
[2018-08-04] MEDS ORDERED: LEADER CLE17 GM/Dose PO (09:25)
[2018-08-04] MEDS ORDERED: ZOFRAN ODT4 MG PO (09:25)
[2018-08-04] MEDS ORDERED: NORCO 325 MG-7.1 TAB PO (09:26)
[2018-08-04] MEDS ORDERED: LAMICTAL 25MG T25 MG PO (09:27)
--- NOTE | 2018-08-04 12:00 | NUR ---
Patient Health Summary, Discharge Summary, and Home Meds printed and reviewed with patient and family. Stressed importance of follow up appointments. Reviewed medications, provided printed prescription for [place]. Belongings gathered by patient and family including quad cane, glasses, cell phone, weigher and charger inhaler, 2 ceramic angels, purse, wallet with $20/x2 visa cards. Patient transported via wheelchair by RN/Lisa and seatbelted for ride home with family. Patient and family denied questions.
== END 2018-08-04 12:00 | disposition home health service (06) | DRG 560 ==
PROVIDERS: Internal Medicine; Internal Medicine Nephrology; ADMIT Internal Medicine
DX: Z47.81 Encounter for orthopedic aftercare following surgical amputation (principal); Z68.41 Body mass index [BMI] 40.0-44.9, adult; M86.9 Osteomyelitis, unspecified; N18.4 Chronic kidney disease, stage 4 (severe); Z89.512 Acquired absence of left leg below knee; E11.22 Type 2 diabetes mellitus with diabetic chronic kidney disease; N28.9 Disorder of kidney and ureter, unspecified; E11.69 Type 2 diabetes mellitus with other specified complication; I12.9 Hypertensive chronic kidney disease with stage 1 through stage 4 chronic kidney disease, or unspecified chronic kidney disease; F31.9 Bipolar disorder, unspecified; E87.5 Hyperkalemia; F41.1 Generalized anxiety disorder; E28.2 Polycystic ovarian syndrome; K21.9 Gastro-esophageal reflux disease without esophagitis; D64.9 Anemia, unspecified; E11.40 Type 2 diabetes mellitus with diabetic neuropathy, unspecified; E66.01 Morbid (severe) obesity due to excess calories; R40.0 Somnolence; Z79.82 Long term (current) use of aspirin; Z79.84 Long term (current) use of oral hypoglycemic drugs; Z87.891 Personal history of nicotine dependence
CPT/HCPCS: 99222-AI; 99232-AI; 99233-AI; 99239; J0881; J1644; J1815; J2916; J7040

== ENCOUNTER 2018-08-07 14:33 | Observation (INO) | payer MEDICARE, MEDICAID ==
[~2018-08-07] VITALS: Ht 167.6 cm; Wt 115.3 kg
[~2018-08-07 14:33] MED LIST changes: +COLACE 100100 MG/CAP PO; +LAMICTAL 25MG T25 MG PO; +LEADER CLE17 GM/Dose PO; +NORVASC 5MG5 MG/TAB PO; +ZOFRAN ODT4 MG PO
[2018-08-07 15:19] LABS: BASO # 0.1 (0.0-0.2); EOS # 0.2 (0.0-0.7); EOS % 2.3 % (0-4.0); GRAN # 6.6 (1.4-6.5); LYMPH # 0.7 (1.2-3.4); LYMPH % 8.5 % (20.0-51.0); MEAN CELL VOLUME 86 fl (80.0-100.0); MEAN CORPUSCULAR HGB CONC 29 g/dl (33.0-37.0); MEAN PLATELET VOLUME 9.1 fl (7.4-10.4); MONO # 0.3 (0.1-0.6); MONO % 3.8 % (1.7-9.3); PLATELET COUNT 284 K/mm3 (130-400); RED BLOOD COUNT 3.76 M/mm3 (4.10-5.30); REDCELL DISTRIBUTION WIDTH-CV 18.3 % (11.5-14.5)
[2018-08-07 15:20] LABS: HEMATOCRIT 32.2 % (37.0-47.0); HEMOGLOBIN 9.3 g/dl (12.5-16.0); MEAN CORPUSCULAR HEMOGLOBIN 25 pg (27.0-31.0)
[2018-08-07 15:31] LABS: ALANINE AMINOTRANSFERASE 15 U/L (9-52); ALBUMIN 4.2 gm/dL (3.5-5.0); ALKALINE PHOSPHATASE 91 U/L (50-136); ANION GAP 11 mmol/L (7-16); AST,SGOT 28 U/L (15-37); BILIRUBIN,TOTAL 0.4 mg/dL (0.0-1.0); BLOOD UREA NITROGEN 54 mg/dL (7-17); CALCIUM 9.2 mg/dL (8.4-10.2); CARBON DIOXIDE 24 mmol/L (22-30); CHLORIDE 108 mmol/L (98-107); CREATININE, serum 3.41 (0.52-1.25); LIPASE 231 U/L (23-300); SODIUM 144 mmol/L (137-145)
[2018-08-07 15:35] LABS: C-REACTIVE PROTEIN < 0.5 mg/dL (0.0-0.9); GLUCOSE 36 mg/dL (74-106)
--- NOTE | 2018-08-07 16:15 | NUR ---
PATIENT UP TO ROOM, ESCORTED BY ARLETTE ALCOCER. PATIENT FAMILY AT BEDSIDE.
[2018-08-07 16:19] VITALS: BP 157/62; PULSE 66; TEMP 97.9
--- NOTE | 2018-08-07 18:23 | NUR ---
Patient assessment and admission complete. Lung sounds clear, heart RRR. Radial pulses strong bilaterally. Bowel sounds present X4. LAC IV with D5NS. Fluids dc'd per KASEY Lam after blood glucose check if normal. Blood sugar checked, 178. last check was 144. Patient denies chest pain, dizziness, heart palpitations. Patient states she has chronic numbness and tingling due to DM. Patient has left BTK amputation. Patient recently here for amputation, discharged 08/04/18. patient on room air. Cooperative with cares, call light within reach. Denies other needs at this time.
[2018-08-07 18:50] VITALS: BP 143/56; PULSE 66; TEMP 98.3
--- NOTE | 2018-08-07 19:13 | NUR ---
report given to alejandra barton.
--- NOTE | 2018-08-07 21:00 | NUR ---
PT RESTING IN BED A+OX4. REPORTS PAIN IN LEFT KNEE RADIATING TO UPPER LEG, PRN MEDS GIVEN. NO SOA. NO NAUSEA. 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 RIGHT LOWER EXTREMITY HAS 2+ SWELLING. IV FLUSHES WELL NO SWELLING, NO REDNESS. NO NEEDS AT THIS TIME.C ALL LIGHT IN REACH
[2018-08-07 23:09] VITALS: BP 143/56; PULSE 66; TEMP 98.3
[2018-08-08 03:25] VITALS: BP 139/55; PULSE 63; TEMP 98.1
--- NOTE | 2018-08-08 04:27 | NUR ---
PT HAS SLEPT THROUGHOUT NIGHT. NO INSULIN NEEDED THROUGOUT NIGHT. BG WITHIN ACCEPTABLE RANGE. NO NEEDS AT THIS TIME. CALL LIGHT IN REACH
--- NOTE | 2018-08-08 05:44 | NUR ---
PT HAD AN UNEVENTFUL NIGHT. BLOOD SUGARS HAVE BEEN IN AN ACCEPTABLE RAGE. SOME PAIN IN LEFT KNEE/LEG- PRN MEDS GIVEN- GAVE RELIEF. NO NEEDS AT THIS TIME. CALL LIGHT IN REACH
[2018-08-08 06:05] LABS: BASO # 0.1 (0.0-0.2); BASO % 0.8 % (0.0-2.0); EOS # 0.2 (0.0-0.7); EOS % 2.9 % (0-4.0); GRAN # 3.9 (1.4-6.5); GRAN % 66.3 % (42.2-75.2); LYMPH # 1.4 (1.2-3.4); LYMPH % 23.3 % (20.0-51.0); MEAN CELL VOLUME 87 fl (80.0-100.0); MEAN CORPUSCULAR HGB CONC 28 g/dl (33.0-37.0); MEAN PLATELET VOLUME 9.7 fl (7.4-10.4); MONO # 0.4 (0.1-0.6); MONO % 6.4 % (1.7-9.3); PLATELET COUNT 216 K/mm3 (130-400); RED BLOOD COUNT 3.15 M/mm3 (4.10-5.30); REDCELL DISTRIBUTION WIDTH-CV 18.4 % (11.5-14.5)
[2018-08-08 06:07] LABS: HEMATOCRIT 27.5 % (37.0-47.0); HEMOGLOBIN 7.8 g/dl (12.5-16.0); MEAN CORPUSCULAR HEMOGLOBIN 25 pg (27.0-31.0)
[2018-08-08 06:20] LABS: CALCIUM 8.6 mg/dL (8.4-10.2); CREATININE, serum 3.21 (0.52-1.25); POTASSIUM 4.2 mmol/L (3.4-5.0)
--- NOTE | 2018-08-08 07:04 | NUR ---
REPORT GIVEN TO ARLETTE SALES.
[2018-08-08 07:21] VITALS: BP 134/51; PULSE 58; TEMP 97.8
--- NOTE | 2018-08-08 09:32 | NUR ---
Patient laying in bed upon entry. Assessment complete. Lung sounds clear, heart RRR. Denies dizziness upon ambulating to bathroom, denies chest pain, N/V. C/O pain but "not worth writing home about". Patient had recent left BKA. Denies other needs at this time. LAC IV patent. Patient discharging today. Call light within reach.
--- NOTE | 2018-08-08 10:17 | NUR ---
PHILLIP met with the patient to discuss discharge plan. The patient was recently discharged, 08/05, from [facility]. She states everything was going well, but then her diabetes acted up. She has been staying with her sister, Qiana, in [place] and has been utilizing her wheelchair. She also receives home health services through [facility]. PHILLIP contacted and confirmed that the patient is still receiving services for PT/OT/intermediate from [place] and [facility]. The patient's PCP is Dr. Alycia Vallejo and she receives her medications at the [facility]. She reports no difficultes obtaining her meds. The patient does not have advanced directives, but she was interested in obtaining a form for DPOA-HC. PHILLIP provided. The patient is to discharge back home with her sister today, 08/08, and resume home health services for PT/OT/intermediate through [facility]. No additional needs at this time.
--- NOTE | 2018-08-08 11:45 | NUR ---
PAtient discharge instructions reviewed and discussed. All questions answered. LAC INT IV discontinued. Catheter tip intact, no complications. Denies other needs, awaiting ride.
--- NOTE | 2018-08-08 12:45 | NUR ---
Patient discharged. Patient did not call to inform this nurse that her ride was here. Patient left with ride. All discharge information was discussed prior to leaving.
== END 2018-08-08 12:45 | disposition home or self-care (01) ==
LOC: COL.ER 14:33 → MEDICAL 15:20
PROVIDERS: Emergency Medicine; Nurse Practitioner Family; ADMIT Internal Medicine
DX: E11.649 Type 2 diabetes mellitus with hypoglycemia without coma (principal); Z89.512 Acquired absence of left leg below knee; F41.9 Anxiety disorder, unspecified; E66.01 Morbid (severe) obesity due to excess calories; K21.9 Gastro-esophageal reflux disease without esophagitis; I12.9 Hypertensive chronic kidney disease with stage 1 through stage 4 chronic kidney disease, or unspecified chronic kidney disease; E11.22 Type 2 diabetes mellitus with diabetic chronic kidney disease; E11.42 Type 2 diabetes mellitus with diabetic polyneuropathy; N18.6 End stage renal disease; D63.1 Anemia in chronic kidney disease; Z79.82 Long term (current) use of aspirin; E28.2 Polycystic ovarian syndrome; Z79.84 Long term (current) use of oral hypoglycemic drugs; Z87.891 Personal history of nicotine dependence; Z82.49 Family history of ischemic heart disease and other diseases of the circulatory system
CPT/HCPCS: G0378; J7042

== ENCOUNTER 2018-09-28 15:27 | Inpatient (IN) | payer MEDICARE, MEDICAID ==
[~2018-09-28] VITALS: Ht 167.6 cm; Wt 115.7 kg
--- NOTE | 2018-09-28 07:11 | NUR ---
CARDIOPULMONARY SET UP PATIENT'S CONTINUOUS PULSE OXYMETRY. CARDIOPULMONARY EXPRESSED CONCERNS WITH PATIENT'S BREATHING PATTERN. PATIENT CHECKED, AND RESPIRATIONS APPEARED TO BE MORE LABORED THAN HER INITIAL ASSESSMENT WITH DECREASED AROUSEABILITY.
--- NOTE | 2018-09-28 15:45 | NUR ---
PATIENT ARRIVED TO ROOM 323 VIA GURNEY BY EMS. EMS AND NURSING STAFF SLID PATIENT TO BED. PATIENT THEN STOOD UP AT THE BEDSIDE WITH TWO ASSIST TO REMOVE EMS SLID PAD FROM UNDERNEATH HER. PATIENT ABLE TO ASSIST STAFF IN MOVING CLOSER TO THE HEAD OF THE BED WHILE STANDING. PATIENT THEN REPOSITIONED AND SETTELED INTO BED. PATIENT SLIGHTLY DROWSY BUT A&OX4. BRADYCARDIA NOTED, 02 91% ON 2L NASAL CANNULA. PATIENT PALE IN COLORING. UPPER LUNG LOBES CLEAR UPON AUSCULTATION. LUNG BASES DIMINISHED. PATIENT DENIES SHORTNESS OF BREATH AT THIS TIME. ABDOMEN ROUNDED, SOFT WITH BOWEL SOUNDS ACTIVE ALL FOUR QUADRANTS. PATIENT DENIES COMPLAINTS OF N/V. PATIENT'S LEFT BKA SITE DRESSED WITH AN WILY WRAP DRESSING AND KNEE IMMOBILIZER IN PLACE, BOTH ARE CD&I. CALL LIGHT WITHIN REACH. PATIENT DENIES ANY OTHER NEEDS AT THIS TIME.
[2018-09-28 15:55] VITALS: BP 134/72; PULSE 56; TEMP 97.6
--- NOTE | 2018-09-28 16:01 | NUR ---
DR. GALLAGHER CALLED AND NOTIFIED OF PATIENT ARRIVAL. PATIENT HOME MEDICATIONS REVIEWED AND UPDATED WITH PHYSICIAN OVER THE PHONE. FOLLOWING TELEPHONE ORDERS GIVEN. LABS: CMP, CBC WITH DIFF, BNP, PT, INR. ADA, RENAL DIET WITH A FLUID RESTRICTION OF 1,500 MLS/24 HOURS. ACCU CHECKS ACHS, WITH LOW DOSE INSULIN SLIDING SCALE. CONTINUOUS PULSE OXYMETRY. BLADDER SCAN THE PATIENT ONCE IN THE MORNING X3 DAYS, AND TO CALL THE PHYSICIAN IF THE VOLUME SCANNED WAS GREATER THAN OR EQUAL TO [address] GALLAGHER TO THIS NURSE.
[2018-09-28 17:14] LABS: MEAN CELL VOLUME 90 fl (80.0-100.0); MEAN CORPUSCULAR HGB CONC 28 g/dl (33.0-37.0); MEAN PLATELET VOLUME 9.6 fl (7.4-10.4); PLATELET COUNT 224 K/mm3 (130-400); RED BLOOD COUNT 3.47 M/mm3 (4.10-5.30); REDCELL DISTRIBUTION WIDTH-CV 16.6 % (11.5-14.5)
--- NOTE | 2018-09-28 17:14 | NUR ---
DR. GALLAGHER CALLED AND NOTIFIED THAT THE PATIENT HAS AN IRREGULAR BREATHING PATTERN. DR. GALLAGHER ORDERED A ARTERIAL BLOOD GAS TORB TO THIS NURSE.
[2018-09-28 17:16] LABS: HEMATOCRIT 31.2 % (37.0-47.0); HEMOGLOBIN 8.6 g/dl (12.5-16.0); MEAN CORPUSCULAR HEMOGLOBIN 25 pg (27.0-31.0)
[2018-09-28 17:28] LABS: INR 1.1 (0.8-3.0); LYMPHOCYTE 5 % (20.0-51.0); NEUTROPHILS 95 % (42.0-75.2); PLATELET ESTIMATE NORMAL (NORMAL); PROTHROMBIN TIME 13.2 SECONDS (9.7-12.8)
[2018-09-28 17:29] LABS: ANISOCYTOSIS 2+; MICROCYTOSIS 1+
[2018-09-28 17:30] LABS: ALBUMIN 3.6 gm/dL (3.5-5.0); BILIRUBIN,TOTAL 0.3 mg/dL (0.0-1.0); BURR CELLS 1+; CALCIUM 8.6 mg/dL (8.4-10.2); CREATININE, serum 3.22 (0.52-1.25); OVALOCYTES 1+; POTASSIUM 5.4 mmol/L (3.4-5.0); TEAR DROP CELLS 2+; TOTAL PROTEIN 6.9 gm/dL (6.4-8.2)
--- NOTE | 2018-09-28 17:45 | NUR ---
PRODUCT AMBASSADOR CALLED AND MADE AWARE OF TELEPHONE CONVERSATION WITH DR. GALLAGHER.
[2018-09-28 17:48] LABS: ARTERIAL BLD GAS O2 SATURATION 90.9 % (92-100); ARTERIAL BLD GAS TCO2 CT 28.9; ARTERIAL BLOOD GAS BASE EXCESS -4.5 (-2-2); ARTERIAL BLOOD GAS HCO3 26.2 meq/L (22-26); ARTERIAL BLOOD GAS PO2 75.4 mmHg (80-100)
[2018-09-28 17:49] LABS: ARTERIAL BLOOD GAS PCO2 87.9 mmHg (35-45); ARTERIAL BLOOD GAS pH 7.09 (7.35-7.45)
--- NOTE | 2018-09-28 17:49 | NUR ---
CARDIOPULMONOLOGY CALLED AND NOTIFIED THIS NURSE OF CRITICAL ABG RESULTS. PH: 7.09, CO2: 87.9, PO2: 75.4 AND HCO3 OF 26.2. BINDER OPERATOR AWARE AND THIS NURSE MADE AWARE OF AVAILABLE BED IN ICU.
--- NOTE | 2018-09-28 17:50 | NUR ---
DR. GALLAGHER CALLED AND NOTIFIED OF CRITICAL ABG RESULTS. DR. GALLAGHER WAS INFORMED THAT THE DIESEL ENGINE PIPE FITTER IS AWARE OF THE RESULTS AND THEY HAVE AN ICU BED AVAILABLE FOR THE PATIENT. DR. GALLAGHER STATED, "ITS MY DECISION IF I WANT TO SEND THE PATIENT TO THE ICU, NOT HOUSE. I'M HEADING TO THE HOSPITAL. START THE PATIENT ON BIPAP AND CONSULT DR. JARQUIN." THE PHYSICIAN THEN HUNG UP THE PHONE ON THIS NURSE.
--- NOTE | 2018-09-28 17:53 | NUR ---
CARDIOPULMONARY CALLED AND NOTIFIED TO START THE PATIENT ON BIPAP.
--- NOTE | 2018-09-28 17:54 | NUR ---
SEISMOGRAPH RECORDER CALLED AND MADE AWARE OF TELEPHONE CONVERSATION WITH DR. GALLAGHER.
--- NOTE | 2018-09-28 17:57 | NUR ---
DR. JARQUIN CALLED AND MESSAGE LEFT FOR PULMONOLOGY CONSULT.
--- NOTE | 2018-09-28 18:00 | NUR ---
BREAD PANNER CALLED AND NOTIFIED OF MESSAGE LEFT FOR DR. JARQUIN.
--- NOTE | 2018-09-28 18:02 | NUR ---
DR. GALLAGHER CALLED BY THIS NURSE AND ASKED FOR ICU BED TRANSFER ORDERS. DR. GALLAGHER STATED, "I THOUGHT IT WAS AGREED UPON WITH OUR LAST CONVERSATION THAT THE PATIENT WOULD TRANSFER TO THE ICU." THIS NURSE CLARIFIED THAT HE HAD ONLY GIVEN ORDERS FOR BIPAP AND A PULMONOLGY CONSULT. DR. GALLAGHER STATED, "YES, TRANSFER THE PATIENT TO THE ICU."
--- NOTE | 2018-09-28 18:02 | NUR ---
THIS NURSE RECIEVED A RETURN CALL FROM DR. JARQUIN. DR. JARQUIN STATED THAT HE HAD ALREADY SPOKEN WITH DR. GALLAGHER, AND WANTED TO CONFIRM THE PATIENT'S ICU STATUS. DR. JARQUIN NOTIFIED THAT NO ICU TRANSFER ORDERS WERE GIVEN AT THE TIME OF THE PHONE CALL, THE ONLY ORDERS RECIEVED WERE TO START THE PATIENT ON BIPAP AND TO CALL THE PULMONOLGY CONSULT. DR. JARQUIN STATED TO HAVE THE NURSE CALL WHEN THE PATIENT HAD ICU ORDERS AND HAD TRANSFERRED TO THE ICU.
--- NOTE | 2018-09-28 18:03 | NUR ---
DR. JARQUIN CALLED AND NOTIFIED OF ICU TRANSFER ORDERS.
--- NOTE | 2018-09-28 18:03 | NUR ---
SLAG WORKER CALLED AND NOTIFIED OF ICU TRANSFER ORDER.
--- NOTE | 2018-09-28 18:17 | NUR ---
CARDIOPULMONARY CALLED AND NOTIFIED OF PATIENT ICU TRANSFER ORDERS.
--- NOTE | 2018-09-28 18:41 | NUR ---
REPORT CALLED TO ARLETTE FRANCOIS ICU NURSE. PATIENT TRANSFERRED.
--- NOTE | 2018-09-28 19:10 | NUR ---
VERBAL ORDER TO START PROPOFOL AT 30 MCG/KG/MIN FOLLOWING INTUBATION FOR CENTRAL LINE PLACEMENT PER DR JARQUIN.
--- NOTE | 2018-09-28 19:26 | NUR ---
REPORT RECIEVED FROM ARLETTE LANGSTON. PATIENT RECEIVED FROM FLOOR ON BIPAP. HOUSE GAVE VERBAL ORDER FOR ANESTHESIA TO INTUBATE. ANESTHESIA NOTIFIED. ANESTHESIA, DR. GALLAGHER AND DR. JARQUIN AT THE BEDSIDE. PATIENT INTUBATED AT 1856 PER ANESTHESIA. CATHETER PLACED ALONG WITH OG. DR. JARQUIN CURRENTLY AT BEDSIDE PLACING CENTRAL LINE. BEDSIDE REPORT GIVEN TO ARLETTE DE GUZMAN.
[2018-09-28 20:00] VITALS: BP 163/92; PULSE 57; TEMP 97.5
[2018-09-28 20:55] VITALS: BP 167/82; PULSE 60
--- NOTE | 2018-09-28 20:55 | NUR ---
patient began to get agitated. increased drip per protocol parameters.
[2018-09-28 21:33] LABS: ARTERIAL BLD GAS O2 SATURATION 94.4 % (92-100); ARTERIAL BLD GAS TCO2 CT 23.9; ARTERIAL BLOOD GAS BASE EXCESS -1.9 (-2-2); ARTERIAL BLOOD GAS HCO3 22.8 meq/L (22-26); ARTERIAL BLOOD GAS PCO2 38.1 mmHg (35-45); ARTERIAL BLOOD GAS PO2 69.8 mmHg (80-100); ARTERIAL BLOOD GAS pH 7.39 (7.35-7.45)
[2018-09-29 00:22] VITALS: BP 172/79; PULSE 66; TEMP 97.8
[2018-09-29 04:22] VITALS: BP 161/76; PULSE 72; TEMP 98.1
[2018-09-29 05:02] LABS: ARTERIAL BLD GAS O2 SATURATION 95.5 % (92-100); ARTERIAL BLD GAS TCO2 CT 22.8; ARTERIAL BLOOD GAS BASE EXCESS -1.8 (-2-2); ARTERIAL BLOOD GAS HCO3 21.8 meq/L (22-26); ARTERIAL BLOOD GAS PCO2 32.2 mmHg (35-45); ARTERIAL BLOOD GAS PO2 82.6 mmHg (80-100); ARTERIAL BLOOD GAS pH 7.45 (7.35-7.45)
--- NOTE | 2018-09-29 05:33 | NUR ---
sedation vacation and ventilator weening trial tried at this time.
--- NOTE | 2018-09-29 05:35 | NUR ---
decreased by half the rate to perform sedation vacation/ ventilator weening trial at this time.
--- NOTE | 2018-09-29 05:37 | NUR ---
PT IS ON SPONT . PT IS AWAKE AND FOLLOWING COMMAND. HR 98 SAT 99% ON 30% . RSBI 62 .WILL CONTINUE TO MONITOR PT. NURSE NOTIFIED ABOUT WEANING. RT IS IN ROOM FOR 30MNS
[2018-09-29 05:38] LABS: BASO % 0.2 % (0.0-2.0); GRAN # 4.7 (1.4-6.5); GRAN % 85.1 % (42.2-75.2); LYMPH # 0.5 (1.2-3.4); LYMPH % 8.7 % (20.0-51.0); MEAN CORPUSCULAR HGB CONC 29 g/dl (33.0-37.0); MEAN PLATELET VOLUME 9.3 fl (7.4-10.4); MONO # 0.3 (0.1-0.6); MONO % 5.3 % (1.7-9.3); PLATELET COUNT 213 K/mm3 (130-400); RED BLOOD COUNT 3.13 M/mm3 (4.10-5.30); REDCELL DISTRIBUTION WIDTH-CV 16.6 % (11.5-14.5)
[2018-09-29 05:40] LABS: HEMATOCRIT 26.6 % (37.0-47.0); HEMOGLOBIN 7.8 g/dl (12.5-16.0); MEAN CELL VOLUME 85 fl (80.0-100.0); MEAN CORPUSCULAR HEMOGLOBIN 25 pg (27.0-31.0)
[2018-09-29 05:50] LABS: CALCIUM 8.8 mg/dL (8.4-10.2); CREATININE, serum 3.24 (0.52-1.25); MAGNESIUM 2.2 mg/dL (1.6-2.3); PHOSPHOROUS 5.6 mg/dL (2.5-4.5); POTASSIUM 4.8 mmol/L (3.4-5.0)
--- NOTE | 2018-09-29 07:11 | NUR ---
gave report to alejandra cervantes.
[2018-09-29 08:00] VITALS: BP 151/74; PULSE 79; TEMP 98.8
--- NOTE | 2018-09-29 08:00 | NUR ---
Pt awake this am and communicating with staff with hand-written notes. Pt denies pain. Plan is to extubate.
--- NOTE | 2018-09-29 09:02 | NUR ---
ORAL SUCTION CONDUCTED PRIOR TO EXTUBATION PT EXTUBATED PER DR WAGONER, PLACED ON 5L NC. NO STRIDOR PRESENT, PT NOT IN DISTRESS.
--- NOTE | 2018-09-29 09:02 | NUR ---
PT EXTUBATED BY RT AT 0902. PT TOLERATED WELL. 5L NC SP02 92%.
--- NOTE | 2018-09-29 09:30 | NUR ---
Following pt extubation, pt pulled off tegaderm covering right IJ. Pt states she thought there was sticky stuck to her face and was picking at it. Pt educated on the importance of keeping the central line site clean and covered. Site was immediately cleansed and redressed using sterile technique. Dr Salgado was notified of the incident at noon today while in the ICU department; acknowledged and thought action was appropriate.
[2018-09-29 12:00] VITALS: BP 133/65; PULSE 62; TEMP 98.1
--- NOTE | 2018-09-29 12:00 | NUR ---
PT ON 4L NC. PTS O2 DOES DECLINE 88% DURING SLEEP; PT WOKEN TO COUGH AND USE INCENTIVE SPIROMETER, 02 INCREASES. PT DENIES PAIN AT CURRENT TIME.
[2018-09-29 16:00] VITALS: BP 149/81; PULSE 63; TEMP 97.7
[2018-09-29 20:00] VITALS: BP 134/68; PULSE 65; TEMP 98.2
[2018-09-30] VITALS (12 sets, daily range): BP systolic 136–164; BP diastolic 68–80; PULSE 59–75; TEMP 97.6–98.5
--- NOTE | 2018-09-30 01:51 | NUR ---
called eicu regarding patients low o2 saurations. rn said she would let the drAna know and to increas oxygen until patient o2 is above 90%.
[2018-09-30 02:17] LABS: ARTERIAL BLD GAS O2 SATURATION 84.4 % (92-100); ARTERIAL BLD GAS TCO2 CT 26.9; ARTERIAL BLOOD GAS BASE EXCESS -4.9 (-2-2); ARTERIAL BLOOD GAS HCO3 24.6 meq/L (22-26); ARTERIAL BLOOD GAS PO2 54.9 mmHg (80-100)
[2018-09-30 02:18] LABS: ARTERIAL BLOOD GAS PCO2 75.1 mmHg (35-45); ARTERIAL BLOOD GAS pH 7.13 (7.35-7.45)
--- NOTE | 2018-09-30 02:25 | NUR ---
PATIENT IS BEING PLLACED ON BIPAP AT THIS TIME DUE TO RECENT ABG RESULTS.
[2018-09-30 03:36] LABS: ARTERIAL BLD GAS O2 SATURATION 88.3 % (92-100); ARTERIAL BLD GAS TCO2 CT 27.3; ARTERIAL BLOOD GAS BASE EXCESS -2.7 (-2-2); ARTERIAL BLOOD GAS HCO3 25.3 meq/L (22-26); ARTERIAL BLOOD GAS PCO2 64.2 mmHg (35-45); ARTERIAL BLOOD GAS PO2 59.4 mmHg (80-100); ARTERIAL BLOOD GAS pH 7.21 (7.35-7.45)
[2018-09-30 04:36] LABS: BASO % 0.4 % (0.0-2.0); EOS # 0.1 (0.0-0.7); EOS % 0.7 % (0-4.0); GRAN # 5.4 (1.4-6.5); GRAN % 73.6 % (42.2-75.2); LYMPH # 1.3 (1.2-3.4); LYMPH % 17.2 % (20.0-51.0); MEAN CORPUSCULAR HGB CONC 27 g/dl (33.0-37.0); MEAN PLATELET VOLUME 9.4 fl (7.4-10.4); MONO # 0.5 (0.1-0.6); MONO % 6.6 % (1.7-9.3); PLATELET COUNT 188 K/mm3 (130-400); RED BLOOD COUNT 2.76 M/mm3 (4.10-5.30); REDCELL DISTRIBUTION WIDTH-CV 17.1 % (11.5-14.5)
[2018-09-30 04:38] LABS: HEMATOCRIT 25.2 % (37.0-47.0); HEMOGLOBIN 6.8 g/dl (12.5-16.0); MEAN CELL VOLUME 91 fl (80.0-100.0); MEAN CORPUSCULAR HEMOGLOBIN 25 pg (27.0-31.0)
--- NOTE | 2018-09-30 04:46 | NUR ---
CALLED EICU REGARDING PATIENTS LOW HGB LEVEL. EICU NURSE PUSHED TO GET THE PATIENT TO DIALYSIS TODAY.
[2018-09-30 04:51] LABS: CALCIUM 8.3 mg/dL (8.4-10.2); CREATININE, serum 3.79 (0.52-1.25); MAGNESIUM 2.3 mg/dL (1.6-2.3); PHOSPHOROUS 8.6 mg/dL (2.5-4.5); POTASSIUM 4.9 mmol/L (3.4-5.0)
--- NOTE | 2018-09-30 04:56 | NUR ---
TALKED WITH EICU DOCTOR. HE WOULD LIKE TO POSTPONE GIVING PATIENT ANY BLOOD PRODUCTS AT THIS TIME UNTIL PATIENT GOES TO DIALYSIS SINCE SHE IS NOT SHOWING ANY SIGNS AND SYMPTONS OF LOW HGB LEVELS. HE WOULD ALSO LIKE TO HOLD ANTICOAGULATION MEDICATIONS AT THIS TIME. WILL CONTINUE TO MONITOR PATIENT.
[2018-09-30 05:12] LABS: ARTERIAL BLOOD GAS PCO2 55.1 mmHg (35-45); ARTERIAL BLOOD GAS pH 7.26 (7.35-7.45)
[2018-09-30 05:13] LABS: ARTERIAL BLOOD GAS BASE EXCESS -2.7 (-2-2); ARTERIAL BLOOD GAS HCO3 24.5 meq/L (22-26); ARTERIAL BLOOD GAS PO2 273.5 mmHg (80-100)
--- NOTE | 2018-09-30 07:18 | NUR ---
gave report to alejandra cervantes.
--- NOTE | 2018-09-30 08:00 | NUR ---
This am pt is on bipap at 45% ipap 22/8 epap 20. Pt denies pain. VSS.
--- NOTE | 2018-09-30 10:28 | NUR ---
SW met with the patient to discuss a discharge plan. The pt is staying in [place] with her sister, Qiana. The pt reports independence with ADLs and does not use home health services at this time. The pt's PCP is Dr. Coyle and pt receives medications from [facility] with no difficulties. The pt does not have advanced directives in the EMR but reports they are completed and designate her sister Qiana Cook . The pt's sister will provide transporation once it is time to discharge. There are no additional needs at this time.
--- NOTE | 2018-09-30 12:00 | NUR ---
Pt on bipap and blood transfusion initiated.
[2018-09-30 20:44] LABS: HEMOGLOBIN 7.8 g/dl (12.5-16.0)
[2018-10-01] VITALS (9 sets, daily range): BP systolic 131–180; BP diastolic 56–82; PULSE 60–70; TEMP 98–98.6
--- NOTE | 2018-10-01 03:50 | NUR ---
Report received from ARLETTE Rasheed. Entered room to meet patient; assessment complete. Assisted to reposition in bed. Reports a headache and rates it as a 3/10 but refused offer for medication or a cool cloth. Patient currenlty on 3L nc and taking a break from BIPAP. Approximately 20 minutes prior o2 was noted to be dipping into upper 80's. RT attempted to re-place BIPAP and pt refused. This nurse again attempted to switch to BIPAP and patient refused. 02 sats currently upper 90's on 3L NC. ABG to be drawn this morning. Told patient that depending on the results, it may be necessary to put back the BIPAP to avoid complications. Patient verbalized agreement. No other complaints at this time. Will continue to monitor.
--- NOTE | 2018-10-01 04:02 | NUR ---
gave report to alejandra kuhn.
[2018-10-01 05:30] LABS: BASO # 0.1 (0.0-0.2); BASO % 0.7 % (0.0-2.0); EOS # 0.2 (0.0-0.7); EOS % 2.2 % (0-4.0); GRAN # 4.9 (1.4-6.5); GRAN % 67.8 % (42.2-75.2); LYMPH # 1.5 (1.2-3.4); LYMPH % 20.3 % (20.0-51.0); MEAN CELL VOLUME 90 fl (80.0-100.0); MEAN CORPUSCULAR HGB CONC 28 g/dl (33.0-37.0); MONO # 0.6 (0.1-0.6); MONO % 8.3 % (1.7-9.3); PLATELET COUNT 165 K/mm3 (130-400); RED BLOOD COUNT 3.15 M/mm3 (4.10-5.30); REDCELL DISTRIBUTION WIDTH-CV 16.2 % (11.5-14.5)
[2018-10-01 05:32] LABS: HEMATOCRIT 28.3 % (37.0-47.0); MEAN CORPUSCULAR HEMOGLOBIN 25 pg (27.0-31.0)
[2018-10-01 05:46] LABS: CALCIUM 8.2 mg/dL (8.4-10.2); CREATININE, serum 3.65 (0.52-1.25); MAGNESIUM 2.3 mg/dL (1.6-2.3); PHOSPHOROUS 7.1 mg/dL (2.5-4.5); POTASSIUM 4.6 mmol/L (3.4-5.0)
[2018-10-01 07:02] LABS: ARTERIAL BLD GAS O2 SATURATION 94.6 % (92-100); ARTERIAL BLD GAS TCO2 CT 26.3; ARTERIAL BLOOD GAS HCO3 24.4 meq/L (22-26); ARTERIAL BLOOD GAS PCO2 63.3 mmHg (35-45); ARTERIAL BLOOD GAS PO2 87.3 mmHg (80-100)
--- NOTE | 2018-10-01 07:10 | NUR ---
Report recieved from Tricia CHONG. RT in with patient at this time for ABG. BiPap off and O2 via NC at 5L currently. Call light at side, denies needs.
--- NOTE | 2018-10-01 07:11 | NUR ---
Report given to ARLETTE Goncalves. Patient care transfered.
--- NOTE | 2018-10-01 16:04 | NUR ---
To label tacker via bed with RN x2 for scheduled procedure.
--- NOTE | 2018-10-01 16:21 | NUR ---
ALL MEDICATIONS GIVEN VORB WITH MD. SEE MERGE FOR ALL MEDICATION TIMES. SEE MERGE FOR ALL RASS ASSESSMENTS DURING AND POST PROCEDURE.
--- NOTE | 2018-10-01 17:47 | NUR ---
Report recieved from Anjum CHONG from . Patient tolerated procedure well.
--- NOTE | 2018-10-01 17:55 | NUR ---
Returns from laborer shellfish processing via bed with RN x2. Dressing to previous CL site with small amout blood on dressing, CL states was dry previous to transfer to bed. Incision visualized and no bleeding, will monitor. HD cath to right chest with small amout of oozing at bottom of dressing. Will monitor. Complains of headache and Tylenol requested.
--- NOTE | 2018-10-01 18:43 | NUR ---
Tylenol given. No further drainage on dressing to Right neck and right chest. Family at bedside for visit
--- NOTE | 2018-10-01 19:30 | NUR ---
Report given to Tricia CHONG. Patient transferred [place] [facility] with 2:1 assist pivot. Tolerated well.
--- NOTE | 2018-10-01 19:35 | NUR ---
Assisted patient up to use commode; utilized X 2 assist with gait belt. Patient had a large formed BM. Patient nervous about transferring from commode back to bed. Had 3rd nurse come to assist with transfer by moving bed closer to patient, so that bed would be directly beneath her bottom. Assisted to a more comfortable position and assessment completed at this time. No complaints at this time. Will continue to monitor.
--- NOTE | 2018-10-01 22:00 | NUR ---
Left the unit at this time. Assisted to transfer from ICU to medical bed. Patient alert and oriented and stable upon departure.
--- NOTE | 2018-10-01 22:20 | NUR ---
Patient transferred from ICU to medical floor. Vitals stable, patient alert and oriented. Resting in bed comfortably at this time.
--- NOTE | 2018-10-02 00:09 | NUR ---
Resting in bed. Denies needs. Call light in reach.
--- NOTE | 2018-10-02 01:26 | NUR ---
Request glucerna for low blood sugar. checked sugar, 115. Provided with cranberry juice. Denies other needs.
--- NOTE | 2018-10-02 03:30 | NUR ---
Report received from ARLETTE Loomis.
[2018-10-02 04:01] VITALS: BP 153/69; PULSE 65; TEMP 97.7
--- NOTE | 2018-10-02 05:38 | NUR ---
Transferred to medical floor from ICU around 2200. One episode of low blood sugar. Blood sugar checked, was 115. Juice given. Otherwise, patient had uneventful night. Patient resting in bed. Call light within reach.
[2018-10-02 07:45] VITALS: BP 146/61; PULSE 71; TEMP 98.7
--- NOTE | 2018-10-02 10:40 | NUR ---
SW met with the patient to discuss physical therapy recommendation of likey needing post acute rehab. The pt states she would rather go home with home health services. Patient has had [facility] in the past and would like have them back. She states she feel more comfortable going home and having services there. SW to fax referral to [facility]. PHILLIP will continue to follow.
[2018-10-02 10:52] LABS: BASO % 0.6 % (0.0-2.0); EOS # 0.1 (0.0-0.7); EOS % 2.5 % (0-4.0); GRAN # 4.1 (1.4-6.5); GRAN % 78.9 % (42.2-75.2); LYMPH # 0.6 (1.2-3.4); MEAN CELL VOLUME 87 fl (80.0-100.0); MEAN CORPUSCULAR HGB CONC 29 g/dl (33.0-37.0); MEAN PLATELET VOLUME 8.9 fl (7.4-10.4); MONO # 0.3 (0.1-0.6); MONO % 5.8 % (1.7-9.3); PLATELET COUNT 133 K/mm3 (130-400); RED BLOOD COUNT 3.17 M/mm3 (4.10-5.30); REDCELL DISTRIBUTION WIDTH-CV 15.9 % (11.5-14.5)
[2018-10-02 10:53] LABS: HEMATOCRIT 27.6 % (37.0-47.0); MEAN CORPUSCULAR HEMOGLOBIN 25 pg (27.0-31.0)
[2018-10-02 11:04] LABS: ALBUMIN 3.1 gm/dL (3.5-5.0); CALCIUM 8.2 mg/dL (8.4-10.2); CREATININE, serum 2.78 (0.52-1.25); PHOSPHOROUS 4.9 mg/dL (2.5-4.5); POTASSIUM 4.2 mmol/L (3.4-5.0)
[2018-10-02 15:49] VITALS: BP 165/59; PULSE 99; TEMP 98.3
--- NOTE | 2018-10-02 19:21 | NUR ---
Pt had uneventful day. received dialysis mid morning. VSS, blood sugars WNL. pt on 4L NC. Right chest dialysis catheter dressing changed during dialysis. Back on floor, site is CDI w/ gauze dressing in place. Gonzales in place w/ no complications draining yellow urine. Pt in recliner most of afternoon after dialysis with family/friends at bedside. Assisted to bed standby w/ walker. Pt denies dizzines, chest pain, N/V. No other needs at this time. report given to Carla RN.
--- NOTE | 2018-10-02 19:38 | NUR ---
INT left forearm started. Tolerated well. Denies needs at this time.
[2018-10-02 19:43] VITALS: BP 154/53; BP 188/81; PULSE 60; PULSE 64; TEMP 97.6; TEMP 98.5
--- NOTE | 2018-10-02 21:30 | NUR ---
Report received from ARLETTE Peng. Patient resting in bed. Vitals all within normal limits. Patient is alert and oriented. IV patent, flushed. Complains of pain in head and neck rated at a 4/10. PRN tylenol given. Will reassess. Denies any other needs at this time. Call light within reach.
[2018-10-02 23:24] LABS: HEPATITIS B CORE AB,TOTAL Negative (())
[2018-10-02 23:25] LABS: HEPATITIS B SURFACE ANTIGEN Negative (Negative)
[2018-10-02 23:46] VITALS: BP 149/58; PULSE 67; TEMP 99
--- NOTE | 2018-10-03 00:45 | NUR ---
Resting in bed. Denies needs. Call light in reach.
[2018-10-03 04:01] VITALS: BP 150/60; PULSE 71; TEMP 98.3
--- NOTE | 2018-10-03 05:43 | NUR ---
Patient had uneventful night. PRN tylenol given for head and neck pain, reassess and did help decrease pain level. Patient is resting in bed. Denies further needs at this time. Call light within reach.
--- NOTE | 2018-10-03 06:54 | NUR ---
Report given to ARLETTE Concepcion
[2018-10-03 08:04] VITALS: BP 153/66; PULSE 77; TEMP 98.9
[2018-10-03 08:15] LABS: BASO % 0.6 % (0.0-2.0); EOS # 0.2 (0.0-0.7); EOS % 3.8 % (0-4.0); GRAN # 3.3 (1.4-6.5); GRAN % 69.8 % (42.2-75.2); LYMPH # 0.8 (1.2-3.4); LYMPH % 17.3 % (20.0-51.0); MEAN CELL VOLUME 88 fl (80.0-100.0); MEAN CORPUSCULAR HGB CONC 28 g/dl (33.0-37.0); MEAN PLATELET VOLUME 9.6 fl (7.4-10.4); MONO # 0.4 (0.1-0.6); MONO % 7.9 % (1.7-9.3); PLATELET COUNT 147 K/mm3 (130-400); RED BLOOD COUNT 3.13 M/mm3 (4.10-5.30); REDCELL DISTRIBUTION WIDTH-CV 15.9 % (11.5-14.5)
[2018-10-03 08:19] LABS: ALBUMIN 3.1 gm/dL (3.5-5.0); CALCIUM 8.4 mg/dL (8.4-10.2); CREATININE, serum 2.46 (0.52-1.25); PHOSPHOROUS 4.4 mg/dL (2.5-4.5); POTASSIUM 4.2 mmol/L (3.4-5.0)
[2018-10-03 08:34] LABS: HEMATOCRIT 27.5 % (37.0-47.0); HEMOGLOBIN 7.8 g/dl (12.5-16.0); MEAN CORPUSCULAR HEMOGLOBIN 25 pg (27.0-31.0)
[2018-10-03 08:47] LABS: HEPATITIS C VIRUS ANTIBODY Negative (Negative)
[2018-10-03 08:48] LABS: HEPATITIS B SURFACE ANTIBODY <2.0 (())
--- NOTE | 2018-10-03 09:39 | NUR ---
Melina from [facility] met with patient who is adament that she wants to go home at discharge.
[2018-10-03 11:37] VITALS: BP 153/59; PULSE 71; TEMP 98
--- NOTE | 2018-10-03 12:21 | NUR ---
PT DOWN FOR DIALYSIS AT THIS TIME.
[2018-10-03 16:26] VITALS: BP 151/58; PULSE 74; TEMP 98.4
--- NOTE | 2018-10-03 17:22 | NUR ---
Pt assessment completed and charted. Pt attended dialysis this afternoon. Pt a little emotional/overwhelmed w/ new start of dialysis and accepting "everything being thrown at her". Otherwise uneventful day. C/O headache earlier today. VSS throughout day. LKA wrapped with moon wrap. Gonzales in place draining pale yellow urine. Pt has rt chest dialysis catheter w/ gauze and tegaderm covering site. This morning dressing had some minimal drainage. This afternoon after dialysis dressing changed, CDI. RIJ dressing w/ steri strips, intact. Pt on 1-2L O2 at this time. LWR INT IV flushes well w/ no complications. No other needs at this time.
[2018-10-03 20:21] VITALS: BP 155/61; PULSE 77; TEMP 98.3
--- NOTE | 2018-10-03 23:22 | NUR ---
Report received from ARLETTE Peng. Patient was very emotional at the beginning of the shift. Seems to be doing better now. Denies any pain. Vital signs all within normal limits. Has no other needs at this time. Call light is within reach.
[2018-10-03 23:29] VITALS: BP 169/65; PULSE 70; TEMP 98.7
[2018-10-04 03:55] VITALS: BP 153/76; PULSE 77; TEMP 98.5
--- NOTE | 2018-10-04 05:44 | NUR ---
Patient had uneventful night. Vitals all remained stable throughout the night. Denied pain throughout the night. Was concerned about leg needing to be unwrapped. Will pass on to next shift to speak with ortho. Emotional with fistula placement and current situaion. Provided emotional support.
--- NOTE | 2018-10-04 06:46 | NUR ---
Report given to ARLETTE Mcallister.
[2018-10-04 07:51] LABS: BASO # 0.1 (0.0-0.2); BASO % 0.8 % (0.0-2.0); EOS # 0.2 (0.0-0.7); EOS % 3.5 % (0-4.0); GRAN # 4.3 (1.4-6.5); GRAN % 73.1 % (42.2-75.2); LYMPH # 0.8 (1.2-3.4); LYMPH % 13.5 % (20.0-51.0); MEAN CELL VOLUME 86 fl (80.0-100.0); MEAN CORPUSCULAR HGB CONC 29 g/dl (33.0-37.0); MEAN PLATELET VOLUME 9.3 fl (7.4-10.4); MONO # 0.5 (0.1-0.6); MONO % 8.4 % (1.7-9.3); PLATELET COUNT 117 K/mm3 (130-400); RED BLOOD COUNT 3.31 M/mm3 (4.10-5.30); REDCELL DISTRIBUTION WIDTH-CV 15.8 % (11.5-14.5)
[2018-10-04 07:53] LABS: HEMATOCRIT 28.6 % (37.0-47.0); HEMOGLOBIN 8.4 g/dl (12.5-16.0); MEAN CORPUSCULAR HEMOGLOBIN 25 pg (27.0-31.0)
[2018-10-04 08:06] LABS: ALBUMIN 3.3 gm/dL (3.5-5.0); CALCIUM 8.7 mg/dL (8.4-10.2); CREATININE, serum 1.53 (0.52-1.25); PHOSPHOROUS 2.4 mg/dL (2.5-4.5); POTASSIUM 3.6 mmol/L (3.4-5.0)
[2018-10-04 12:48] LABS: INR 1.1 (0.8-3.0); PROTHROMBIN TIME 13.4 SECONDS (9.7-12.8)
--- NOTE | 2018-10-04 15:00 | NUR ---
[facility] able to accept patient on discharge
[2018-10-04 17:31] VITALS: BP 159/73; PULSE 76; TEMP 98.6
--- NOTE | 2018-10-04 18:35 | NUR ---
Patient is sitting on side of bed ordering supper. Has no pain at this time. No needs verbalized. Personal items and call light is within reach.
[2018-10-04 18:53] VITALS: BP 155/60; PULSE 74; TEMP 98.4
--- NOTE | 2018-10-04 20:30 | NUR ---
PT RESTING IN BED A+OX4. REPORTS HEAD ACHE- PRN NORCO GIVEN- PT SLEEPING WHEN REASSESSED. VSS. PT HANSON DRAINING FREELY, NO KINKS, SECURED TO LEG. CLEAR YELLOW URINE NOTED. SHIFT ASSESSMENT COMPLETE. DIALYSIS CATH DCI. SUTURES INTACT, NO DRAINAGE NOTED. NO NEEDS AT THIS TIME. CALL LIGHT IN REACH
[2018-10-04 23:05] VITALS: BP 150/56; PULSE 84; TEMP 98.6
--- NOTE | 2018-10-05 01:43 | NUR ---
LEFT BKA DRESSINF DCI. PT SLEEPING AT THIS TIME. REFUSED HEPARIN. CALL LIGHT IN REACH
[2018-10-05 04:28] VITALS: BP 147/74; PULSE 77; TEMP 98.4
--- NOTE | 2018-10-05 05:12 | NUR ---
pt had an uneventful night. reported headache at the beginning of the night prn pain meds given. pt slept throughout night. iv flushes well, no redness, no swelling. left BKA dressing DCI. no soa. deluca draining freely, no kinks, secured to leg. no needs at this time. call light in reach
--- NOTE | 2018-10-05 05:51 | NUR ---
PT REQUESTED TO TAKE PROTONIX AFTER DIALYSIS. REFUSED ANYTHING TO EAT BEFORE LEAVING FOR DIALYSIS.
--- NOTE | 2018-10-05 06:17 | NUR ---
PT LEFT FOR DIALYSIS AT THIS TIME.
--- NOTE | 2018-10-05 06:50 | NUR ---
REPORT GIVEN TO ARLETTE LANCE
[2018-10-05 07:06] LABS: BASO % 0.7 % (0.0-2.0); EOS # 0.2 (0.0-0.7); GRAN # 3.2 (1.4-6.5); GRAN % 70.8 % (42.2-75.2); LYMPH # 0.8 (1.2-3.4); MEAN CELL VOLUME 87 fl (80.0-100.0); MEAN CORPUSCULAR HGB CONC 29 g/dl (33.0-37.0); MONO # 0.3 (0.1-0.6); MONO % 7.1 % (1.7-9.3); PLATELET COUNT 122 K/mm3 (130-400); RED BLOOD COUNT 3.27 M/mm3 (4.10-5.30); REDCELL DISTRIBUTION WIDTH-CV 15.9 % (11.5-14.5)
[2018-10-05 07:08] LABS: HEMATOCRIT 28.3 % (37.0-47.0); HEMOGLOBIN 8.3 g/dl (12.5-16.0); MEAN CORPUSCULAR HEMOGLOBIN 25 pg (27.0-31.0)
--- NOTE | 2018-10-05 07:10 | NUR ---
Received report from Ruby, patient is currently receiving dialysis, left floor at 0630.
[2018-10-05 07:20] LABS: ALBUMIN 3.1 gm/dL (3.5-5.0); CALCIUM 8.5 mg/dL (8.4-10.2); CREATININE, serum 1.59 (0.52-1.25)
[2018-10-05] MEDS ORDERED: NORCO 325 MG-51 TAB PO (10:04)
[2018-10-05] MEDS ORDERED: LASIX 20MG TABL20 MG PO (10:11)
--- NOTE | 2018-10-05 11:09 | NUR ---
SW presented the IM form to the patient; pt understood and signed the form. A copy was provided to the pt and the original was placed in the chart. There are no additional needs at this time.
[2018-10-05 12:35] VITALS: BP 154/72; PULSE 79; TEMP 99
--- NOTE | 2018-10-05 13:27 | NUR ---
PHILLIP faxed discharge orders to [facility]. Patient dc home today with home health services.
--- NOTE | 2018-10-05 17:05 | NUR ---
Patient discharged home accompanied by sister. Was assisted in packing personal belongings. Discharge instructions given to patient with good understanding. Patient left via private vehicle.
--- NOTE | 2018-10-08 11:16 | NUR ---
Cal from [facility] informed SW that the pt refused home health services at this time and she would prefer to start them after her othro which is the or 12 of October. There are no additional needs at this time.
== END 2018-10-05 16:25 | disposition home or self-care (01) | DRG 208 ==
LOC: SURG 15:27 → ICU 18:10 → MEDICAL 10-01 22:37
PROVIDERS: Internal Medicine; Internal Medicine Pulmonary Disease; ADMIT Internal Medicine Nephrology
PROC: 5A1935Z Respiratory Ventilation, Less than 24 Consecutive Hours (ICD-10-PCS; principal; 2018-09-28)
PROC: 0BH17EZ Insertion of Endotracheal Airway into Trachea, Via Natural or Artificial Opening (ICD-10-PCS; 2018-09-28)
PROC: 02HV33Z Insertion of Infusion Device into Superior Vena Cava, Percutaneous Approach (ICD-10-PCS; 2018-09-28)
PROC: 5A1D70Z Performance of Urinary Filtration, Intermittent, Less than 6 Hours Per Day (ICD-10-PCS; 2018-10-01)
PROC: 0JH60XZ Insertion of Tunneled Vascular Access Device into Chest Subcutaneous Tissue and Fascia, Open Approach (ICD-10-PCS; 2018-10-02)
PROC: 02HV33Z Insertion of Infusion Device into Superior Vena Cava, Percutaneous Approach (ICD-10-PCS; 2018-10-02)
DX: J96.02 Acute respiratory failure with hypercapnia (principal); I12.0 Hypertensive chronic kidney disease with stage 5 chronic kidney disease or end stage renal disease; G93.40 Encephalopathy, unspecified; Z68.41 Body mass index [BMI] 40.0-44.9, adult; N18.5 Chronic kidney disease, stage 5; N17.9 Acute kidney failure, unspecified; D63.1 Anemia in chronic kidney disease; J96.01 Acute respiratory failure with hypoxia; E87.70 Fluid overload, unspecified; E11.22 Type 2 diabetes mellitus with diabetic chronic kidney disease; E11.65 Type 2 diabetes mellitus with hyperglycemia; E11.319 Type 2 diabetes mellitus with unspecified diabetic retinopathy without macular edema; E11.40 Type 2 diabetes mellitus with diabetic neuropathy, unspecified; F41.9 Anxiety disorder, unspecified; I08.0 Rheumatic disorders of both mitral and aortic valves; K21.9 Gastro-esophageal reflux disease without esophagitis; J45.909 Unspecified asthma, uncomplicated; E78.5 Hyperlipidemia, unspecified; E66.01 Morbid (severe) obesity due to excess calories; Z87.891 Personal history of nicotine dependence; Z89.512 Acquired absence of left leg below knee; Z79.82 Long term (current) use of aspirin
CPT/HCPCS: 99232-AI; 99233-AI; A9284; C1750; C1769; C1892; G0365; J0690; J0881; J0882; J1644; J1940; J2250; J2704; J3010; J7030; P9016

== ENCOUNTER 2018-10-18 06:36 | Day surgery (SDC) | payer MEDICARE, MEDICAID ==
[~2018-10-18] VITALS: Ht 167.6 cm; Wt 99.5 kg
[2018-10-18 07:41] LABS: CALCIUM 9.4 mg/dL (8.4-10.2); CREATININE, serum 3.21 (0.52-1.25); POTASSIUM 4.6 mmol/L (3.4-5.0)
[2018-10-18 07:45] VITALS: BP 156/73; PULSE 86; TEMP 98.1
[2018-10-18] MEDS ORDERED: LAMICTAL 25MG T25 MG PO (08:23)
[2018-10-18] MEDS ORDERED: DESYREL 100MG100 MG PO (08:24)
[2018-10-18] MEDS ORDERED: NORVASC 5MG5 MG/TAB PO (08:25)
[2018-10-18] MEDS ORDERED: PRILOSEC 20MG20 MG PO (08:25)
[2018-10-18] MEDS ORDERED: LASIX 80MG TABL80 MG PO (08:35)
[2018-10-18] MEDS ORDERED: LIPITOR 80MG80 MG PO (08:36)
[2018-10-18] MEDS ORDERED: TYLENOL 500MG500 MG PO (08:37)
[2018-10-18] MEDS ORDERED: ASPIRIN 81M81 MG/TA2 PO (08:37)
[2018-10-18] MEDS ORDERED: NORCO 325 MG-51 TAB PO ×2 (08:41→10:51)
[2018-10-18] MEDS ORDERED: PROVENTIL0.09 MG/A1 IH (08:42)
[2018-10-18 10:10] VITALS: BP 105/53; PULSE 95
--- NOTE | 2018-10-18 10:10 | NUR ---
Patient returns to room 2 per cart from surgery and is awake and alert. Temp 98.3 and room air sats 95%. Bright set dressing dry on the left wrist and slight thrill noted. IV fluids infusing at 30cc/hr. Siderails up x2 and call light in reach. Allowed to rest.
[2018-10-18 10:25] VITALS: BP 113/59; PULSE 82
--- NOTE | 2018-10-18 10:25 | NUR ---
Taking ice chips. Sister in law in the room. Denies pain or nausea.
[2018-10-18 10:40] VITALS: BP 108/54; PULSE 85
--- NOTE | 2018-10-18 10:40 | NUR ---
Tolerates ice chips. Offered snack and refuses. States that they are going to [facility] for breakfast.
[2018-10-18 10:55] VITALS: BP 121/65; PULSE 84
--- NOTE | 2018-10-18 10:55 | NUR ---
Room air sats 98%. Talking with family. Continue to palpate light thrill.
[2018-10-18 11:10] VITALS: BP 116/60; PULSE 79
--- NOTE | 2018-10-18 11:10 | NUR ---
Denies pain and no drainage from left distal forearm incision.
--- NOTE | 2018-10-18 11:30 | NUR ---
IV discontinued and patient dresses self. Able to transfer self with standby assist from cart to wheelchair.
--- NOTE | 2018-10-18 11:40 | NUR ---
Patient given dismissal instructions and voices understanding of home cares and need to keep from putting anything tight or restrictive on the left arm and not to allow IV starts or blood pressures on the left arm.
--- NOTE | 2018-10-18 11:43 | NUR ---
Patient dismissed to home driven by family and escorted to the front door per wheelchair with dismissal instructions in hand.
--- NOTE | 2018-10-18 13:51 | NUR ---
Initial visit; Patient requested Spiritual Care prior to her surgical procedure. Parent Trainer offered comfort, encouragement and prayer prior to her surgical procedure and later wished her well when being Discharged.
== END 2018-10-18 11:43 | disposition home or self-care (01) ==
LOC: SDCO 06:36
PROVIDERS: Surgery
DX: E11.22 Type 2 diabetes mellitus with diabetic chronic kidney disease (principal); I13.2 Hypertensive heart and chronic kidney disease with heart failure and with stage 5 chronic kidney disease, or end stage renal disease; N18.6 End stage renal disease; I50.9 Heart failure, unspecified; E66.1 Drug-induced obesity; K21.9 Gastro-esophageal reflux disease without esophagitis; D63.1 Anemia in chronic kidney disease; E28.2 Polycystic ovarian syndrome; J45.909 Unspecified asthma, uncomplicated; I08.3 Combined rheumatic disorders of mitral, aortic and tricuspid valves; G89.29 Other chronic pain; Z99.2 Dependence on renal dialysis; Z79.82 Long term (current) use of aspirin; Z79.84 Long term (current) use of oral hypoglycemic drugs; Z83.3 Family history of diabetes mellitus; Z82.49 Family history of ischemic heart disease and other diseases of the circulatory system; Z80.8 Family history of malignant neoplasm of other organs or systems; Z89.512 Acquired absence of left leg below knee; Z87.891 Personal history of nicotine dependence; Z68.35 Body mass index [BMI] 35.0-35.9, adult
CPT/HCPCS: C1768; J0690; J1644; J2704; J3010; J7030

== ENCOUNTER 2019-02-13 12:12 | Outpatient (CLI) | payer MEDICARE, MEDICAID ==
[~2019-02-13] VITALS: Ht 167.6 cm; Wt 103.2 kg
[2019-02-13] VITALS (7 sets, daily range): BP systolic 110–124; BP diastolic 52–66; PULSE 77–86; TEMP 98.6
[~2019-02-13 12:12] MED LIST changes: +ASPIRIN 81M81 MG/TA2 PO; +DESYREL 100MG100 MG PO; +LASIX 80MG TABL80 MG PO; +PROVENTIL0.09 MG/A1 IH; +TYLENOL 500MG500 MG PO
[2019-02-13] MEDS ORDERED: MASON NATURAL2000 IU PO (13:08)
[2019-02-13] MEDS ORDERED: PHOSLO667 MG PO (13:08)
[2019-02-13] MEDS ORDERED: AURYXIA1 GM PO (13:09)
--- NOTE | 2019-02-13 14:44 | NUR ---
SEE MERGE DOCUMENTATION FOR MEDICATION ADMINISTRATION TIMES AND INTRA/POST PROCEDURE SEDATION ASSESSMENTS.
--- NOTE | 2019-02-13 15:30 | NUR ---
Back from Developmental Psychologist alert and oriented, denies pain at this time. Left forearm fistula CD&I with bandaid at site. VSS
--- NOTE | 2019-02-13 16:40 | NUR ---
INT discontinued intact. Discharge instructions given. Transferred to private car by angelita
== END 2019-02-13 16:40 | disposition home or self-care (01) ==
LOC: COL.CAR 12:12
DX: T82.898A Other specified complication of vascular prosthetic devices, implants and grafts, initial encounter (principal); I12.0 Hypertensive chronic kidney disease with stage 5 chronic kidney disease or end stage renal disease; N18.6 End stage renal disease; Z89.512 Acquired absence of left leg below knee; Z87.891 Personal history of nicotine dependence; Z79.82 Long term (current) use of aspirin
CPT/HCPCS: J1200; J1644; J2250; J3010; Q9967

== ENCOUNTER 2019-03-27 10:24 | Day surgery (SDC) | payer MEDICARE, MEDICAID ==
[~2019-03-27] VITALS: Ht 167.6 cm; Wt 105.0 kg
[~2019-03-27 10:24] MED LIST changes: +AURYXIA1 GM PO; +MASON NATURAL2000 IU PO; +PHOSLO667 MG PO
[2019-03-27 11:31] LABS: CALCIUM 9.4 mg/dL (8.4-10.2); CREATININE, serum 6.17 (0.52-1.25); POTASSIUM 4.3 mmol/L (3.4-5.0)
[2019-03-27 11:38] VITALS: BP 141/62; PULSE 91; TEMP 98
[2019-03-27] MEDS ORDERED: DESYREL 100MG100 MG PO (11:50)
[2019-03-27 13:00] VITALS: BP 96/41; PULSE 84
--- NOTE | 2019-03-27 13:00 | NUR ---
Patient returns to room 5 per cart from surgery accompanied by Adwoa RN and arouses to verbal stimuli. Bright set covering incisions x2 dry. Temp 98.1. Room air sats 89-90 and placed on oxygen at 2L per nasal cannula. IV fluids of Normal Saline infusing at TKO and site is free of redness. Siderails up x2 and call light in reach.
[2019-03-27 13:15] VITALS: BP 105/46; PULSE 76
--- NOTE | 2019-03-27 13:15 | NUR ---
Continues to rest and awakens to verbal stimuli.
[2019-03-27 13:30] VITALS: BP 108/50; PULSE 74
--- NOTE | 2019-03-27 13:30 | NUR ---
Sats 97% on 2L per nasal cannula. Continues to rest and is more awake. Sipping on water.
[2019-03-27 13:45] VITALS: BP 112/52; PULSE 73
--- NOTE | 2019-03-27 13:45 | NUR ---
Has been sipping on water and denies pain or nausea.
[2019-03-27 14:00] VITALS: BP 123/61; PULSE 80
--- NOTE | 2019-03-27 14:00 | NUR ---
Oxygen removed and sats remain 97%.
--- NOTE | 2019-03-27 14:20 | NUR ---
IV discontinued and site is free of redness. Patient dressed and given dismissal instructions. Transportation called.
--- NOTE | 2019-03-27 14:40 | NUR ---
Patient dismissed to home driven by [employer] transportation and assisted into vehicle by this RN with dismissal instructions.
== END 2019-03-27 14:40 | disposition home or self-care (01) ==
LOC: SDCO 10:24
PROVIDERS: Registered Nurse
DX: T82.898A Other specified complication of vascular prosthetic devices, implants and grafts, initial encounter (principal); E11.22 Type 2 diabetes mellitus with diabetic chronic kidney disease; I13.2 Hypertensive heart and chronic kidney disease with heart failure and with stage 5 chronic kidney disease, or end stage renal disease; N18.6 End stage renal disease; K21.9 Gastro-esophageal reflux disease without esophagitis; D63.1 Anemia in chronic kidney disease; J45.909 Unspecified asthma, uncomplicated; I73.9 Peripheral vascular disease, unspecified; G89.29 Other chronic pain; E11.42 Type 2 diabetes mellitus with diabetic polyneuropathy; E66.01 Morbid (severe) obesity due to excess calories; Z87.891 Personal history of nicotine dependence; Z89.512 Acquired absence of left leg below knee
CPT/HCPCS: A4314; J0690; J2250; J2405; J2704; J3010; J7030

== ENCOUNTER 2019-05-14 07:49 | Inpatient (IN) | payer MEDICARE, MEDICAID ==
[~2019-05-14] VITALS: Ht 167.6 cm; Wt 106.9 kg
--- NOTE | 2019-05-14 08:30 | NUR ---
PT ARRIVED TO ROOM 304 ON THE MEDICAL FLOOR. CHANGED INTO HOSPITAL GOWN AND INTO BED. PT C/O PAIN IN HER HEEL. NO OTHER CONCERNS AT THIS TIME. PT ORIENTED TO THE ROOM. CALL LIGHT AND PERSONAL PHONE WITHIN REACH. WILL CONTINUE TO MONITOR.
[2019-05-14 09:08] VITALS: BP 157/51; PULSE 80; TEMP 98
[2019-05-14 10:24] LABS: BASO # 0.1 (0.0-0.2); BASO % 1.1 % (0.0-2.0); EOS # 0.3 (0.0-0.7); EOS % 4.5 % (0-4.0); GRAN # 4.3 (1.4-6.5); GRAN % 66.3 % (42.2-75.2); LYMPH # 1.5 (1.2-3.4); LYMPH % 22.3 % (20.0-51.0); MEAN CELL VOLUME 96 fl (80.0-100.0); MEAN CORPUSCULAR HGB CONC 31 g/dl (33.0-37.0); MEAN PLATELET VOLUME 8.4 fl (7.4-10.4); MONO # 0.3 (0.1-0.6); MONO % 5.2 % (1.7-9.3); PLATELET COUNT 266 K/mm3 (130-400); RED BLOOD COUNT 2.51 M/mm3 (4.10-5.30); REDCELL DISTRIBUTION WIDTH-CV 15.9 % (11.5-14.5)
[2019-05-14 10:29] LABS: ALBUMIN 4.5 gm/dL (3.5-5.0); BILIRUBIN,TOTAL 0.8 mg/dL (0.0-1.0); CALCIUM 10.2 mg/dL (8.4-10.2); CREATININE, serum 6.49 (0.52-1.25); POTASSIUM 4.6 mmol/L (3.4-5.0); TOTAL PROTEIN 8.5 gm/dL (6.4-8.2)
--- NOTE | 2019-05-14 10:30 | NUR ---
Initial visit; Patient thanked Ambulette Driver for offering prayer and comfort upon her arrival to her room and for wishing her well and keeping her in Ambulette Driver's prayers.
[2019-05-14 10:39] LABS: HEMATOCRIT 24.1 % (37.0-47.0); HEMOGLOBIN 7.4 g/dl (12.5-16.0); MEAN CORPUSCULAR HEMOGLOBIN 29 pg (27.0-31.0)
[2019-05-14 14:05] VITALS: BP 157/61; PULSE 81; TEMP 98.7
--- NOTE | 2019-05-14 16:00 | NUR ---
Pt moved from 304 to 310.
--- NOTE | 2019-05-14 16:07 | NUR ---
PHILLIP met with the patient to complete initial intake. The patient lives in [place]. The patient is independent with ADLs. The patient has a prosthesis on her left leg. [facility] provides transportation to her dialysis appointments. The patient's PCP is Dr. Lyle and patient receives medications from [facility] pharmacy. The patient does not have advanced directives in the EMR but reports they are completed and designate her sister, Qiana. front services agent will continue to follow for discharge recommendations.
--- NOTE | 2019-05-14 16:30 | NUR ---
PT STARTED BOWEL PREP.
[2019-05-14 16:57] VITALS: BP 151/70; PULSE 75; TEMP 98.5
--- NOTE | 2019-05-14 18:13 | NUR ---
PT HAS HAD TWO LARGE BOWEL MOVEMENTS. BLACK IN COLOR, LOOSE STOOL, LARGE IN SIZE.
--- NOTE | 2019-05-14 19:26 | NUR ---
PT FINISHED BOWEL PREP FLUID IN RECORD TIME, 2HR 45MIN! PT BOWELS ARE RUNNING CLEAR WITH SOME VISIBLE BLOOD. REPORT GIVEN TO ARLETTE RUBIO. NO FURTHER CONCERNS AT THIS TIME.
[2019-05-14 19:33] VITALS: BP 163/77; PULSE 82; TEMP 97.6
--- NOTE | 2019-05-14 20:48 | NUR ---
Recieved report from ARLETTE Napier. Assessment complete. Alert and oriented x4. Sitting up in recliner chair. Denies any pain or discomfort. Meds administered. Pt consumed entire bowel prep. Having clear BM. Consent obtained for colonoscopy procedure tmrw. INT to RFA intact, flushed dressing CDI. LT BKA with prosthetic ink place and cane at bedside. Fistula to LFA with bruit and thrill. Pt understands NPO status after midnight. Needs met. Call light within reach.
--- NOTE | 2019-05-14 22:30 | NUR ---
pt c/o rt foot pain, rate 8/10, requested pain meds. PRN 1000mg Tylenol administered as requested by pt. Needs met. Call light within reach.
[2019-05-14 23:29] VITALS: BP 130/73; PULSE 73; TEMP 98.5
[2019-05-15] VITALS (8 sets, daily range): BP systolic 121–150; BP diastolic 53–74; PULSE 73–80; TEMP 97.5–98.8
--- NOTE | 2019-05-15 06:08 | NUR ---
Pt uneventful during this shift. NPO since midnight. Needs attended too. Call light within reach.
[2019-05-15 06:18] LABS: BASO # 0.1 (0.0-0.2); BASO % 1.4 % (0.0-2.0); EOS # 0.3 (0.0-0.7); EOS % 6.2 % (0-4.0); GRAN # 2.6 (1.4-6.5); GRAN % 50.1 % (42.2-75.2); LYMPH # 1.8 (1.2-3.4); LYMPH % 34.7 % (20.0-51.0); MEAN CELL VOLUME 97 fl (80.0-100.0); MEAN CORPUSCULAR HGB CONC 31 g/dl (33.0-37.0); MEAN PLATELET VOLUME 8.3 fl (7.4-10.4); MONO # 0.4 (0.1-0.6); MONO % 6.8 % (1.7-9.3); PLATELET COUNT 249 K/mm3 (130-400); REDCELL DISTRIBUTION WIDTH-CV 16.1 % (11.5-14.5)
[2019-05-15 06:26] LABS: ALBUMIN 3.9 gm/dL (3.5-5.0); CALCIUM 9.9 mg/dL (8.4-10.2); CREATININE, serum 6.99 (0.52-1.25); PHOSPHOROUS 5.6 mg/dL (2.5-4.5); POTASSIUM 4.4 mmol/L (3.4-5.0)
[2019-05-15 06:33] LABS: HEMATOCRIT 21.4 % (37.0-47.0); HEMOGLOBIN 6.6 g/dl (12.5-16.0); MEAN CORPUSCULAR HEMOGLOBIN 30 pg (27.0-31.0)
--- NOTE | 2019-05-15 06:49 | NUR ---
Report given to ARLETTE Napier.
--- NOTE | 2019-05-15 07:20 | NUR ---
Pt has left the medical floor for colonoscopy.
--- NOTE | 2019-05-15 08:24 | NUR ---
PT RETURNED FROM [facility] AT 0820. IN ROOM ON BED. WILL HAVE DIALYSIS SHORTLY.
--- NOTE | 2019-05-15 09:33 | NUR ---
pt left floor for dialysis
--- NOTE | 2019-05-15 13:09 | NUR ---
Pt receiving 1 unit of blood in dialysis, and will receive another on the medical floor upon return.
--- NOTE | 2019-05-15 15:22 | NUR ---
Follow-up visit; Patient thanked Neonatal Doctor for looking in on her and offering encouragement and God's blessings.
--- NOTE | 2019-05-15 15:40 | NUR ---
Pull Worker spoke with ARLETTE Reina who to discuss possible need for PT/OT. SW was advised that patient did not require PT/OT and would likely discharge home tomorrow. SW to continue to follow.
--- NOTE | 2019-05-15 18:07 | NUR ---
PT TOLERATED BLOOD TRANSFUSION. VS WNL. PT STATES THAT SHE FEELS NOTHING. WILL RECHECK HGB IN 60 MINUTES. NO FURTHER CONCERNS AT THIS TIME.
--- NOTE | 2019-05-15 19:13 | NUR ---
REPORT GIVEN TO ARLETTE RUBIO.
--- NOTE | 2019-05-15 21:59 | NUR ---
Received report from ARLETTE Napier. Alert and oriented x4. Sitting up in recliner chair. C/O right foot pain, PRN Tylenol administered as requested. Meds administered. INT to RFA intact, flushed, dressing CDI. Personal items at bedside. Needs met. Call light within reach.
[2019-05-16] VITALS (7 sets, daily range): BP systolic 102–137; BP diastolic 48–90; PULSE 71–80; TEMP 97.6–98.6
--- NOTE | 2019-05-16 05:12 | NUR ---
pt slept throught the night without complaints. Meds administered. Needs met. Call light within reach.
[2019-05-16 07:09] LABS: BASO # 0.1 (0.0-0.2); BASO % 1.5 % (0.0-2.0); EOS # 0.3 (0.0-0.7); EOS % 5.2 % (0-4.0); GRAN # 2.9 (1.4-6.5); GRAN % 54.3 % (42.2-75.2); LYMPH # 1.7 (1.2-3.4); LYMPH % 31.5 % (20.0-51.0); MEAN CELL VOLUME 93 fl (80.0-100.0); MEAN CORPUSCULAR HGB CONC 31 g/dl (33.0-37.0); MEAN PLATELET VOLUME 8.5 fl (7.4-10.4); MONO # 0.4 (0.1-0.6); MONO % 6.8 % (1.7-9.3); PLATELET COUNT 246 K/mm3 (130-400); RED BLOOD COUNT 3.11 M/mm3 (4.10-5.30); REDCELL DISTRIBUTION WIDTH-CV 17.2 % (11.5-14.5)
[2019-05-16 07:10] LABS: MEAN CORPUSCULAR HEMOGLOBIN 29 pg (27.0-31.0)
[2019-05-16 07:11] LABS: HEMATOCRIT 28.9 % (37.0-47.0)
--- NOTE | 2019-05-16 07:17 | NUR ---
Report given to ARLETTE Lucia.
[2019-05-16 07:21] LABS: ALBUMIN 4.3 gm/dL (3.5-5.0); CALCIUM 10.1 mg/dL (8.4-10.2); CREATININE, serum 5.41 (0.52-1.25); PHOSPHOROUS 5.4 mg/dL (2.5-4.5); POTASSIUM 4.6 mmol/L (3.4-5.0)
--- NOTE | 2019-05-16 08:32 | NUR ---
PATIENT DOWN TO DIALYIS IN WC. DENIES NEEDS OR COMPLAINTS BEFORE GOING DOWN. SEE EMAR FOR PRN TYLENOL ADMINISTERED FOR C/O RIGHT FOOT PAIN. BEEF CATTLE FARM WORKER PEARL DENIES QUESTIONS OR CONCERNS WHEN PATIENT ARRIVIED.
--- NOTE | 2019-05-16 20:13 | NUR ---
Received report from ARLETTE Lucia. Alert and oriented. Sitting up in recliner chair. C/O rt foot pain, req PRN pain meds. PRN 1000mg Tylenol and scheduled meds administered as requested by pt. Fistula to LFA with bruit and thrill, dressing in place, CDI. INT to RFA intact, dressing CDI. Prosthetic and assistive devices at bedside. Personal items within reach. Needs attended to at this time. Call light within reach.
[2019-05-17 03:11] VITALS: BP 134/52; PULSE 81; TEMP 98.4
--- NOTE | 2019-05-17 05:24 | NUR ---
Pt made no complaints during this shift. Meds administered. Call light within reach.
--- NOTE | 2019-05-17 06:46 | NUR ---
Report given to ARLETTE Lucia.
[2019-05-17 08:27] LABS: BASO # 0.1 (0.0-0.2); BASO % 1.6 % (0.0-2.0); EOS # 0.3 (0.0-0.7); EOS % 5.3 % (0-4.0); GRAN # 2.8 (1.4-6.5); GRAN % 55.4 % (42.2-75.2); LYMPH # 1.6 (1.2-3.4); LYMPH % 30.8 % (20.0-51.0); MEAN CELL VOLUME 94 fl (80.0-100.0); MEAN CORPUSCULAR HGB CONC 31 g/dl (33.0-37.0); MEAN PLATELET VOLUME 8.5 fl (7.4-10.4); MONO # 0.3 (0.1-0.6); MONO % 6.5 % (1.7-9.3); PLATELET COUNT 213 K/mm3 (130-400); RED BLOOD COUNT 3.04 M/mm3 (4.10-5.30); REDCELL DISTRIBUTION WIDTH-CV 16.6 % (11.5-14.5)
[2019-05-17 08:30] LABS: HEMATOCRIT 28.7 % (37.0-47.0); HEMOGLOBIN 8.9 g/dl (12.5-16.0); MEAN CORPUSCULAR HEMOGLOBIN 29 pg (27.0-31.0)
[2019-05-17 08:34] LABS: ALBUMIN 4.2 gm/dL (3.5-5.0); CALCIUM 9.9 mg/dL (8.4-10.2); CREATININE, serum 5.42 (0.52-1.25); PHOSPHOROUS 5.4 mg/dL (2.5-4.5); POTASSIUM 4.2 mmol/L (3.4-5.0)
--- NOTE | 2019-05-17 08:48 | NUR ---
Follow-up visit attempt; Patient not in her room, Wildfire Prevention Specialist left cheerful message.
--- NOTE | 2019-05-17 11:15 | NUR ---
Patient DC to home via private vehicle @ 0450. Printed DC instructions to include medications and f/u reviewed with patient all questions and concerns answered during review. Left unit via WC accompanied by PCT.
== END 2019-05-17 11:15 | disposition home or self-care (01) | DRG 377 ==
LOC: PEDS 07:49 → MEDICAL 07:49
PROVIDERS: Internal Medicine Gastroenterology; Nurse Practitioner; ADMIT Internal Medicine Nephrology
PROC: 0DJ08ZZ Inspection of Upper Intestinal Tract, Via Natural or Artificial Opening Endoscopic (ICD-10-PCS; 2019-05-15)
PROC: 0DB78ZZ Excision of Stomach, Pylorus, Via Natural or Artificial Opening Endoscopic (ICD-10-PCS; 2019-05-15)
PROC: 0DDG8ZX Extraction of Left Large Intestine, Via Natural or Artificial Opening Endoscopic, Diagnostic (ICD-10-PCS; principal; 2019-05-15 07:30)
PROC: 5A1D70Z Performance of Urinary Filtration, Intermittent, Less than 6 Hours Per Day (ICD-10-PCS; 2019-05-15 07:30)
DX: K29.71 Gastritis, unspecified, with bleeding (principal); N18.6 End stage renal disease; I12.0 Hypertensive chronic kidney disease with stage 5 chronic kidney disease or end stage renal disease; E11.22 Type 2 diabetes mellitus with diabetic chronic kidney disease; E11.610 Type 2 diabetes mellitus with diabetic neuropathic arthropathy; I25.10 Atherosclerotic heart disease of native coronary artery without angina pectoris; I08.0 Rheumatic disorders of both mitral and aortic valves; K31.7 Polyp of stomach and duodenum; E83.39 Other disorders of phosphorus metabolism; D63.1 Anemia in chronic kidney disease; E66.9 Obesity, unspecified; Z68.38 Body mass index [BMI] 38.0-38.9, adult; K64.0 First degree hemorrhoids; F32.9 Major depressive disorder, single episode, unspecified; Z79.82 Long term (current) use of aspirin; Z89.512 Acquired absence of left leg below knee; Z87.891 Personal history of nicotine dependence; Z99.2 Dependence on renal dialysis
CPT/HCPCS: J1644; J2704; J2916; J3010; J7030; P9016; Q5105

== ENCOUNTER 2019-08-08 06:40 | Inpatient (IN) | payer MEDICARE, MEDICAID ==
[2019-08-08] VITALS (10 sets, daily range): BP systolic 110–157; BP diastolic 48–65; PULSE 78–83; TEMP 98.6–99.6
[~2019-08-08] VITALS: Ht 167.6 cm; Wt 102.3 kg
[2019-08-08 09:10] LABS: BILIRUBIN,TOTAL 0.5 mg/dL (0.0-1.0); CALCIUM 9.5 mg/dL (8.4-10.2); CREATININE, serum 6.02 (0.52-1.25); PHOSPHOROUS 5.1 mg/dL (2.5-4.5); POTASSIUM 3.7 mmol/L (3.4-5.0); TOTAL PROTEIN 8.3 gm/dL (6.4-8.2)
--- NOTE | 2019-08-08 09:20 | NUR ---
IV STARTED IN RFA 20G, PT TAKEN TO DIALYSIS VIA WHEELCHAIR. COMPLAINING OF PAIN IN CIATIC NERVE. APPLIED NUMBING MEDICATION TO HER ARM FOR DIALYSIS, BROUGHT MEDICATIONS WITH HER.
[2019-08-08 09:23] LABS: BASO # 0.1 (0.0-0.2); BASO % 0.8 % (0.0-2.0); EOS # 0.1 (0.0-0.7); EOS % 0.8 % (0-4.0); GRAN # 4.5 (1.4-6.5); GRAN % 76.4 % (42.2-75.2); LYMPH # 0.8 (1.2-3.4); LYMPH % 13.5 % (20.0-51.0); MEAN CELL VOLUME 95 fl (80.0-100.0); MEAN CORPUSCULAR HGB CONC 33 g/dl (33.0-37.0); MEAN PLATELET VOLUME 8.6 fl (7.4-10.4); MONO # 0.5 (0.1-0.6); MONO % 7.8 % (1.7-9.3); PLATELET COUNT 250 K/mm3 (130-400); RED BLOOD COUNT 2.71 M/mm3 (4.10-5.30); REDCELL DISTRIBUTION WIDTH-CV 14.9 % (11.5-14.5)
[2019-08-08 09:30] LABS: HEMATOCRIT 25.7 % (37.0-47.0); HEMOGLOBIN 8.5 g/dl (12.5-16.0); MEAN CORPUSCULAR HEMOGLOBIN 31 pg (27.0-31.0)
--- NOTE | 2019-08-08 10:25 | NUR ---
CALLED DISBROW TO CONFIRM TIME FOR EGD PROCEDURE. CONSENT NOT YET SIGNED, PT NPO SINCE MIDNIGHT. PT CURRENTLY IN DIALYSIS.
[2019-08-08] MEDS ORDERED: APRESOLINE 25MG25 MG PO (10:54)
[2019-08-08] MEDS ORDERED: GLUCOTROL10 MG PO (10:59)
[2019-08-08] MEDS ORDERED: NORCO 325 MG-51 TAB PO (11:03)
[2019-08-08] MEDS ORDERED: AURYXIA1 GM PO (11:08)
--- NOTE | 2019-08-08 12:08 | NUR ---
JACKIE, INTERNET SITE DESIGNER, INFORMED ME PT IS DONE WITH DIALYSIS. PERIOP WILL TAKE HER STRAIGHT DOWN FOR THE EGD, CONSENT SIGNED AND ON CHART.
--- NOTE | 2019-08-08 13:20 | NUR ---
PT ARRIVED TO FLOOR SETTLED INTO ROOM. PLACED PROSTHESIS NEXT TO BED PT REQUESTED. GAVE PT NORCO REQUESTED FOR BACK PAIN. VITALS CART ATTACHED TO PT. WATER BROUGHT TO BEDSIDE. CALLED [facility]LEX FOR DIET ORDER BUT NO ANSWER, LEFT MESSAGE.
--- NOTE | 2019-08-08 15:30 | NUR ---
PT WANTING TO SPEAK TO LAWN SPRINKLER SERVICER IF AVAILABLE. ATTEMPTED TO CONTACT WITH NO ANSWER. WILL PASS ALONG TO TELL DAY SHIFT TOMORROW.
--- NOTE | 2019-08-08 15:50 | NUR ---
SW met with the patient to complete initial intake. The patient lives alone in [place]. The patient is independent with ADLs and has a left BKA (has prosthetic). The patient does not have HHS at this time but the patient's sister is supportive. The patient's PCP is Dr. Lyle and patient receives medications from [facility]. The patient does not have advanced directives in the EMR but they are completed and designate her sister, Qiana. The patient still works part-time and does not have any HHS at this time. PHILLIP will continue to follow to ensure a safe discharge.
--- NOTE | 2019-08-08 18:04 | NUR ---
PT IN BED, REPORTING PAIN 7/10 WITH BACK. L BKA, PROSTHETIC AT BEDSIDE. PT IN PLEASANT SPIRITS, VERY KNOWLEDGABLE ABOUT HOME MEDICATIONS. FISTULA IN LUE. IV IN RFA. NO OTHER NEEDS AT THIS TIME.
--- NOTE | 2019-08-08 20:50 | NUR ---
Patient assessed at this time. Alert and oriented x 4, and able to make needs known. Complained of level 8 pain. Given PRN [place] for pain as requested. Peripheral INT to right forearm without redness, warmth, swelling, and pain. AV fistula to left forearm with positive bruit and thrill. Denies having SOB and dyspnea. LS CTA. Respirations even and unlabored. HRR. Capillary refill less than 3 seconds. Non-tenting skin turgor. BSAx4. Abdomen soft and non-tender. No edema. Voices no questions, needs, or concerns at this time. Teetee called and stated that HD will be at 0745. Updated patient. Resting in bed with call light within reach.
[2019-08-09 03:59] VITALS: BP 121/64; PULSE 97; TEMP 97.2
--- NOTE | 2019-08-09 05:54 | NUR ---
Patient has been resting in bed with call light within reach. Voices no questions, needs, or concerns at this time. Stated that she is having some pain, but does not want PRN [place] until later this morning. Resting in bed with call light within reach.
[2019-08-09 07:56] LABS: BASO % 0.8 % (0.0-2.0); EOS % 0.8 % (0-4.0); GRAN # 3.2 (1.4-6.5); GRAN % 67.3 % (42.2-75.2); LYMPH # 1.1 (1.2-3.4); LYMPH % 22.7 % (20.0-51.0); MEAN CELL VOLUME 96 fl (80.0-100.0); MEAN CORPUSCULAR HGB CONC 32 g/dl (33.0-37.0); MEAN PLATELET VOLUME 8.8 fl (7.4-10.4); MONO # 0.4 (0.1-0.6); MONO % 7.6 % (1.7-9.3); PLATELET COUNT 244 K/mm3 (130-400); RED BLOOD COUNT 2.82 M/mm3 (4.10-5.30); REDCELL DISTRIBUTION WIDTH-CV 15.1 % (11.5-14.5)
[2019-08-09 08:00] LABS: HEMOGLOBIN 8.5 g/dl (12.5-16.0); MEAN CORPUSCULAR HEMOGLOBIN 30 pg (27.0-31.0)
--- NOTE | 2019-08-09 08:11 | NUR ---
Pt awake and alert upon entry, has C/O back pain, medications given for relief. Shift assessments complete, moved Pt to dialysis.
[2019-08-09 08:31] LABS: CALCIUM 9.8 mg/dL (8.4-10.2); CREATININE, serum 5.62 (0.52-1.25); PHOSPHOROUS 5.6 mg/dL (2.5-4.5); POTASSIUM 3.7 mmol/L (3.4-5.0)
[2019-08-09 11:51] VITALS: BP 130/65; PULSE 87; TEMP 97.5
--- NOTE | 2019-08-09 12:20 | NUR ---
Pt discharged to home, discussed discharge instructions with Pt, answered all questions, escorted Pt to entrance via WC, Pt left via private transportation.
== END 2019-08-09 12:30 | disposition home or self-care (01) | DRG 377 ==
LOC: MEDICAL 06:40
PROVIDERS: Internal Medicine Gastroenterology; ADMIT Internal Medicine Nephrology
PROC: 0DB78ZX Excision of Stomach, Pylorus, Via Natural or Artificial Opening Endoscopic, Diagnostic (ICD-10-PCS; 2019-08-08)
PROC: 0DB98ZX Excision of Duodenum, Via Natural or Artificial Opening Endoscopic, Diagnostic (ICD-10-PCS; principal; 2019-08-08 12:00)
PROC: 5A1D70Z Performance of Urinary Filtration, Intermittent, Less than 6 Hours Per Day (ICD-10-PCS; 2019-08-09)
DX: K31.811 Angiodysplasia of stomach and duodenum with bleeding (principal); N18.6 End stage renal disease; I13.0 Hypertensive heart and chronic kidney disease with heart failure and stage 1 through stage 4 chronic kidney disease, or unspecified chronic kidney disease; I12.0 Hypertensive chronic kidney disease with stage 5 chronic kidney disease or end stage renal disease; D62 Acute posthemorrhagic anemia; K29.71 Gastritis, unspecified, with bleeding; D63.1 Anemia in chronic kidney disease; I08.0 Rheumatic disorders of both mitral and aortic valves; E11.610 Type 2 diabetes mellitus with diabetic neuropathic arthropathy; E11.22 Type 2 diabetes mellitus with diabetic chronic kidney disease; I25.10 Atherosclerotic heart disease of native coronary artery without angina pectoris; E78.5 Hyperlipidemia, unspecified; F32.9 Major depressive disorder, single episode, unspecified; Z89.512 Acquired absence of left leg below knee; Z79.82 Long term (current) use of aspirin
CPT/HCPCS: J2704; J2916; J7030; Q5105

== ENCOUNTER → 2019-10-31 | Outpatient (CLI) | payer MEDICARE, MEDICAID | LOC: MC.RAD 13:04 | DX: Z12.31 Encounter for screening mammogram for malignant neoplasm of breast (principal) ==

== ENCOUNTER 2019-12-10 07:29 | Outpatient (CLI) | payer MEDICARE, MEDICAID ==
[2019-12-10] VITALS (7 sets, daily range): BP systolic 94–133; BP diastolic 47–69; PULSE 75–97; TEMP 97.1
[~2019-12-10] VITALS: Ht 167.7 cm; Wt 110.6 kg
[2019-12-10] MEDS ORDERED: B-121000 MCG PO (08:03)
--- NOTE | 2019-12-10 10:10 | NUR ---
SEE MERGE DOCUMENTATION FOR MEDICATION ADMINISRATION TIMES AND INTRA/POST PROCEDURE SEDATION ASSESSMENTS.
--- NOTE | 2019-12-10 12:50 | NUR ---
IV DC'd with catheter intact and bleeding controlled at site. Pt assisted out to transport car by wheelchair with belongings. Thrill remains palpable at fistula site, and dressing is clean, dry and intact.
== END 2019-12-10 12:50 | disposition home or self-care (01) ==
LOC: COL.CAR 07:29
DX: T82.858A Stenosis of other vascular prosthetic devices, implants and grafts, initial encounter (principal); I12.9 Hypertensive chronic kidney disease with stage 1 through stage 4 chronic kidney disease, or unspecified chronic kidney disease; N18.9 Chronic kidney disease, unspecified; Z87.891 Personal history of nicotine dependence; Z11.59 Encounter for screening for other viral diseases; Z99.2 Dependence on renal dialysis
CPT/HCPCS: J1644; J2250; J3010

== ENCOUNTER → 2020-11-05 | Outpatient (CLI) | payer MEDICARE, MEDICAID ==
[~2020-11-05] MED LIST changes: +B-121000 MCG PO
== END ==
LOC: MC.RAD 10:55
DX: Z12.31 Encounter for screening mammogram for malignant neoplasm of breast (principal)

== ENCOUNTER 2021-02-14 14:22 | Emergency (ER) | payer MEDICARE, MEDICAID ==
[~2021-02-14] VITALS: Ht 167.6 cm; Wt 109.1 kg
[2021-02-14 14:57] VITALS: BP 169/88; TEMP 98.2
[2021-02-14 17:30] VITALS: PULSE 86
== END 2021-02-14 17:30 | disposition home or self-care (01) ==
LOC: COL.ER 14:22
DX: S52.121A Displaced fracture of head of right radius, initial encounter for closed fracture (principal); I12.0 Hypertensive chronic kidney disease with stage 5 chronic kidney disease or end stage renal disease; N18.6 End stage renal disease; D63.1 Anemia in chronic kidney disease; F32.A Depression, unspecified; E11.22 Type 2 diabetes mellitus with diabetic chronic kidney disease; E11.21 Type 2 diabetes mellitus with diabetic nephropathy; E11.40 Type 2 diabetes mellitus with diabetic neuropathy, unspecified; E11.319 Type 2 diabetes mellitus with unspecified diabetic retinopathy without macular edema; Z87.891 Personal history of nicotine dependence; Z99.2 Dependence on renal dialysis; Z79.899 Other long term (current) drug therapy; W19.XXXA Unspecified fall, initial encounter

== ENCOUNTER 2022-03-13 14:45 | Inpatient (IN) | payer MEDICARE, MEDICAID ==
[~2022-03-13] VITALS: Ht 167.6 cm; Wt 104.5 kg
[2022-03-13 17:00] LABS: BASO % 0.2 % (0.0-2.0); EOS % 0.1 % (0.0-4.0); GRAN # 8.2 K/mm3 (1.4-6.5); LYMPH # 0.4 K/mm3 (1.2-3.4); LYMPH % 4.5 % (20.0-51.0); MEAN CELL VOLUME 82 fl (80.0-100.0); MEAN CORPUSCULAR HGB CONC 31 g/dl (33.0-37.0); MEAN PLATELET VOLUME 9.1 fl (7.4-10.4); MONO # 0.4 K/mm3 (0.1-0.6); MONO % 4.5 % (1.7-9.3); PLATELET COUNT 161 K/mm3 (130-400); RED BLOOD COUNT 3.15 M/mm3 (4.10-5.30); REDCELL DISTRIBUTION WIDTH-CV 18.2 % (11.5-14.5)
[2022-03-13 17:02] LABS: HEMATOCRIT 25.7 % (37.0-47.0); HEMOGLOBIN 7.9 g/dl (12.5-16.0); MEAN CORPUSCULAR HEMOGLOBIN 25 pg (27-31)
[2022-03-13 17:26] LABS: ALBUMIN 2.9 gm/dL (3.4-4.8); BILIRUBIN,TOTAL 0.6 mg/dL (0.2-1.2); CALCIUM 10.1 mg/dL (8.4-10.2); CREATININE, serum 12.46 mg/dL (0.57-1.11); TOTAL PROTEIN 7.7 gm/dL (6.2-8.1); TROPONIN-I 0.03 ng/mL (0.00-0.033)
[2022-03-13 17:30] LABS: C-REACTIVE PROTEIN 32.38 mg/dL (0.00-0.50); POTASSIUM 6.1 mmol/L (3.5-4.5)
[2022-03-13] MEDS ORDERED: LYRICA 25MG CAP25 MG PO (19:37)
[2022-03-13] MEDS ORDERED: COZAAR100 MG PO (19:37)
[2022-03-13] MEDS ORDERED: ESTRACE0.5 MG PO (19:40)
[2022-03-13 21:00] VITALS: PULSE 89; TEMP 102.2
[2022-03-13 21:07] VITALS: BP 143/45; PULSE 104; TEMP 102.5
[2022-03-13 21:30] VITALS: PULSE 104; TEMP 102.5
--- NOTE | 2022-03-13 21:30 | NUR ---
PT admitted to room 342 from ED per cart, pt able to transfer from cart to bed with assist of 2, pt has prosthesis on left leg, her own cane and her belongings in room. pt alert and oriented, c/o alot of discomfort in left buttocks, Dr Scott at bedside for consult. Dr Chester aware of pt's admit, will be going to dialysis tomorrow. pt febrile on arrival, given tylenol and dilaudid for pain x1, able to sleep afterwards, BP on low side. zosyn given per ED prior to arrival vanc infusing now per piv in RAC.
[2022-03-13] MEDS ORDERED: LYRICA 50MG CAP50 MG PO (23:05)
[2022-03-13] MEDS ORDERED: OZEMPIC0.25 MG/0. SQ (23:07)
[2022-03-13] MEDS ORDERED: ATARAX 25MG25 MG/TAB PO (23:07)
[2022-03-13] MEDS ORDERED: EMLA CREAM TOP (23:08)
[2022-03-13] MEDS ORDERED: PHOS LO PO (23:09)
[2022-03-13] MEDS ORDERED: NORCO 325 MG-51 TAB PO (23:10)
[2022-03-13 23:45] VITALS: BP 90/35; PULSE 89; TEMP 102.2
[2022-03-14] VITALS (17 sets, daily range): BP systolic 78–122; BP diastolic 22–55; PULSE 73–98; TEMP 97.9–102.2
--- NOTE | 2022-03-14 09:30 | NUR ---
Initial visit; Patient thanked Stamp Maker for looking in on her and offering comfort and support. Patient upset, says she's not sure what is going on but she is having surgery soon and wants Stamp Maker to pray with her. Stamp Maker gave her Stamp Maker's cell phone number and Stamp Maker will follow up then if not sooner. Stamp Maker wished Jose E well.
[2022-03-14] MEDS ORDERED: AURYXIA1 GM PO (10:21)
--- NOTE | 2022-03-14 11:26 | NUR ---
Patient resting in bed. Latosha OLVERA rounded. Plan of care reviewed & orders obtained. She was called and made aware of low BP this am. Patient sister in law has been at bedside advocating for patient. Ivf to Rac with antibiotics. Patient was 2 assist to the bathroom, prostetic placed & cane used. Patient reports dizzyness upon standing. Allyven foam to left buttock. Air mattress applied to bed. Main complaint has been to pain in buttocks. Reddness seen, but no open areas. RLE heel protector on. Plans for dialysis this afternoon. Called ICU charge who spoke with Beena dialysis nurse to time her numbing cream prior to dialysis. Will closely monitor.
--- NOTE | 2022-03-14 12:23 | NUR ---
Patient requesting pain medication. She was not wanting tylenol that was offered, I did call & discuss with Latosha & we agree patient should not receive Diludid due to low BP and dizzyness upon standing. Patient given her cream to dialysis site applied with plastic wrap, per home regiment. Beena to start dialysis within the hour. Patient frustrated with her meal & renal dialysis diet. New lunch ordered. She agrees to try tylenol and motrin for her buttock pain. Will monitor
--- NOTE | 2022-03-14 13:08 | NUR ---
Telemetry Technician met with patient to discuss discharge planning. Patient's sister in law, Jo is at bedside. Patient lives in [place] and sees Dr. Lyle for primary care. Patient obtains medications from [facility]. Patient has a leg prosthetic as well as a cane. Patient is independent with ADLS and plans to return home at time of discharge. Patient reported her sister, Qiana (ph#[phone]) has DPOA-HC. Discharge Plan: Home
[2022-03-14 14:30] LABS: MEAN CELL VOLUME 85 fl (80.0-100.0); MEAN CORPUSCULAR HGB CONC 29 g/dl (33.0-37.0); MEAN PLATELET VOLUME 9.2 fl (7.4-10.4); PLATELET COUNT 151 K/mm3 (130-400); RED BLOOD COUNT 2.66 M/mm3 (4.10-5.30); REDCELL DISTRIBUTION WIDTH-CV 18.6 % (11.5-14.5)
[2022-03-14 14:33] LABS: HEMATOCRIT 22.5 % (37.0-47.0); MEAN CORPUSCULAR HEMOGLOBIN 25 pg (27-31)
[2022-03-14 14:39] LABS: HEMOGLOBIN 6.6 g/dl (12.5-16.0)
--- NOTE | 2022-03-14 14:41 | NUR ---
Critical H&H 6.6, left voicemail to Latosha OLVERA
[2022-03-14 14:42] LABS: ALBUMIN 2.3 gm/dL (3.4-4.8); CALCIUM 9.4 mg/dL (8.4-10.2); CREATININE, serum 8.33 mg/dL (0.57-1.11); PHOSPHOROUS 4.3 mg/dL (2.3-4.7); POTASSIUM 4.4 mmol/L (3.5-4.5)
[2022-03-14 15:09] LABS: BAND 15 % (0-10); BASOPHIL 1 % (0-2); LYMPHOCYTE 5 % (20.0-51.0); MICROCYTOSIS 1+; PLATELET ESTIMATE NORMAL (NORMAL)
[2022-03-14 15:10] LABS: HYPOCHROMIA 3+
[2022-03-14 15:14] LABS: NEUTROPHILS 79 % (42.0-75.2)
--- NOTE | 2022-03-14 15:54 | NUR ---
Patient remains in dialysis, vanc started via IV. Zosyn completed. Spoke to Blood bank & labs collected to get her blood ready.
--- NOTE | 2022-03-14 17:42 | NUR ---
Beena in dialysis did not give ordered iron, I verified with Leticia John & orders for iron given IV post dialysis.
--- NOTE | 2022-03-14 20:46 | NUR ---
Patient resting in bed. Lying on right side. Blood transfusion per orders and policy. Ivf to Right Ac started leaking while blood transfusing. New Ivf started to Rfa by Quyen Charge nurse. Blood now infusing without problem. Patient tolerating. She is having a low grade temp Patient was treated with tyelnol, but also recieved a norco for her buttock pain. Repostioned in bed for comfort. She did not want dinner, minimal appetite. Just overall report being exhausted. Vss on room air, Blood pressure improved. She remains restricted Left extremity. Tracy CHONG to resume cares.
[2022-03-14 22:31] LABS: RETIC # 0.02 M/mm3 (0.02-0.16); RETIC % 0.7 % (0.5-3.52)
[2022-03-15] VITALS (14 sets, daily range): BP systolic 80–117; BP diastolic 21–48; PULSE 64–91; TEMP 97.6–99.3
--- NOTE | 2022-03-15 06:38 | NUR ---
pt rec'd 2 units PRBCs this shift, BP remains on low side, asymptomatic, but has remained in bed. no pain meds given tonight, afebrile.
[2022-03-15 06:47] LABS: MEAN CELL VOLUME 83 fl (80.0-100.0); MEAN CORPUSCULAR HGB CONC 30 g/dl (33.0-37.0); MEAN PLATELET VOLUME 9.4 fl (7.4-10.4); PLATELET COUNT 159 K/mm3 (130-400); RED BLOOD COUNT 3.01 M/mm3 (4.10-5.30); REDCELL DISTRIBUTION WIDTH-CV 18.6 % (11.5-14.5)
[2022-03-15 06:54] LABS: HEMATOCRIT 25.1 % (37.0-47.0); HEMOGLOBIN 7.6 g/dl (12.5-16.0); MEAN CORPUSCULAR HEMOGLOBIN 25 pg (27-31)
[2022-03-15 07:23] LABS: ALBUMIN 2.1 gm/dL (3.4-4.8); CALCIUM 9.5 mg/dL (8.4-10.2); CREATININE, serum 6.61 mg/dL (0.57-1.11); PHOSPHOROUS 5.7 mg/dL (2.3-4.7); POTASSIUM 4.8 mmol/L (3.5-4.5)
[2022-03-15 07:33] LABS: BAND 12 % (0-10); LYMPHOCYTE 1 % (20.0-51.0); NEUTROPHILS 85 % (42.0-75.2); PLATELET ESTIMATE NORMAL (NORMAL)
--- NOTE | 2022-03-15 10:31 | NUR ---
Follow-up visit; Patient thanked Sorter Packer for stopping by, checking on her. Jose E says she doesn't know what's going on with her yet, but hopes something can be done for the pain she's experiencing. Jose E is a delightful person and thinks of everyone before herself. Sorter Packer wished her well and offered God's blessings and will continue to keep her in Sorter Packer's prayers. A nurse was with her.
--- NOTE | 2022-03-15 11:05 | NUR ---
PATIENT ALERT AND ORIENTED X4. VSS WITH BLOOD PRESSURES RUNNING SOFT. PATIENT REPORTS DRAINAGE TO BUTTOCKS. DRESSING CHANGED, NO APPARENT SITE OF DRAINAGE. IV TO RIGHT FOREARM WITH SLOW ZOSYN RUNNING. PATIENT RESTING IN BED WITH CALL LIGHT NEAR.
--- NOTE | 2022-03-15 11:12 | NUR ---
Child Nurse spoke with Latosha Nurse Practitioner about PT/OT for patient.
[2022-03-16] VITALS (7 sets, daily range): BP systolic 90–108; BP diastolic 49–60; PULSE 71–78; TEMP 97.4–99.4
--- NOTE | 2022-03-16 08:00 | NUR ---
Pt received bed bath, was helped to the restroom and clean gown applied prior to taking pt to dialysis via wheelchair.
[2022-03-16 09:01] LABS: MEAN CELL VOLUME 82 fl (80.0-100.0); MEAN CORPUSCULAR HGB CONC 31 g/dl (33.0-37.0); MEAN PLATELET VOLUME 9.3 fl (7.4-10.4); PLATELET COUNT 195 K/mm3 (130-400); RED BLOOD COUNT 3.23 M/mm3 (4.10-5.30); REDCELL DISTRIBUTION WIDTH-CV 18.9 % (11.5-14.5)
[2022-03-16 09:09] LABS: HEMATOCRIT 26.6 % (37.0-47.0); HEMOGLOBIN 8.2 g/dl (12.5-16.0); MEAN CORPUSCULAR HEMOGLOBIN 25 pg (27-31)
[2022-03-16 09:12] LABS: ALBUMIN 2.1 gm/dL (3.4-4.8); CALCIUM 9.2 mg/dL (8.4-10.2); CREATININE, serum 7.07 mg/dL (0.57-1.11); PHOSPHOROUS 4.7 mg/dL (2.3-4.7); POTASSIUM 4.7 mmol/L (3.5-4.5)
[2022-03-16 09:29] LABS: ANISOCYTOSIS 2+; BAND 14 % (0-10); HYPOCHROMIA 3+; LYMPHOCYTE 3 % (20.0-51.0); NEUTROPHILS 81 % (42.0-75.2); OVALOCYTES 1+; PLATELET ESTIMATE NORMAL (NORMAL)
--- NOTE | 2022-03-16 12:30 | NUR ---
Pt back in her room via wheelchair. Assisted pt to the restroom and then to bed. Pt did sit up and ate small amount of her lunch, reports she just does not have an appetite. Pts sister in law is here and wanted update in the pts presence. Updated her per information from Latosha. RN with Dr Chester. No other needs, lights off per pt request and pt laying down resting
[2022-03-16 14:56] LABS: CLOSTRIDIUM DIFF A/B NEG; CLOSTRIDIUM DIFF A/B INTERP NonToxigenic C.diff
--- NOTE | 2022-03-16 19:00 | NUR ---
Pt has done well this afternoon,slept most of it, but did wake when I would go in to check on her. Pt had dinner and PRN pain medication given per request.
[2022-03-17 00:11] VITALS: BP 91/48; PULSE 71; TEMP 98.6
[2022-03-17 00:20] VITALS: PULSE 71; TEMP 98.6
[2022-03-17 03:03] VITALS: BP 92/48; PULSE 71; TEMP 97.8
--- NOTE | 2022-03-17 07:00 | NUR ---
PT RESTING IN BED. PT HAS CALL LIGHT WITHIN REACH AND INSTRUCTED TO CALL WITH ALL NEEDS.
[2022-03-17 07:10] LABS: BASO # 0.1 K/mm3 (0.0-0.2); BASO % 0.6 % (0.0-2.0); EOS % 0.5 % (0.0-4.0); GRAN # 6.9 K/mm3 (1.4-6.5); GRAN % 83.9 % (42.2-75.2); LYMPH # 0.8 K/mm3 (1.2-3.4); LYMPH % 9.4 % (20.0-51.0); MEAN CELL VOLUME 83 fl (80.0-100.0); MEAN CORPUSCULAR HGB CONC 31 g/dl (33.0-37.0); MEAN PLATELET VOLUME 9.4 fl (7.4-10.4); MONO # 0.4 K/mm3 (0.1-0.6); MONO % 4.6 % (1.7-9.3); PLATELET COUNT 183 K/mm3 (130-400); RED BLOOD COUNT 3.15 M/mm3 (4.10-5.30); REDCELL DISTRIBUTION WIDTH-CV 18.7 % (11.5-14.5)
[2022-03-17 07:16] LABS: CALCIUM 9.2 mg/dL (8.4-10.2); CREATININE, serum 4.67 mg/dL (0.57-1.11); PHOSPHOROUS 4.6 mg/dL (2.3-4.7); POTASSIUM 4.3 mmol/L (3.5-4.5)
[2022-03-17 07:25] LABS: MEAN CORPUSCULAR HEMOGLOBIN 25 pg (27-31)
[2022-03-17 08:22] VITALS: BP 93/48; PULSE 70; TEMP 98.1
--- NOTE | 2022-03-17 09:24 | NUR ---
BEDSIDE AND CHANGED PTS DRESSING TO LEFT BUTTOCK WITH MEPLIEX.
[2022-03-17] MEDS ORDERED: CEPHALEXIN500 M1 PO (09:31)
[2022-03-17] MEDS ORDERED: VANCOCIN H125 MG/CAP PO (09:31)
--- NOTE | 2022-03-17 09:52 | NUR ---
Follow-up visit: From outside Jose E's room, Utility Locator checked on Jose E, who said she is going home. Utility Locator asked about the pain she was experiencing. She said she was ok right now and was determined to go home and be with her pups. Utility Locator will keep Jose E in her prayers and wished her Blessings.
[2022-03-17 12:00] VITALS: BP 104/53; PULSE 71; TEMP 99
--- NOTE | 2022-03-17 15:33 | NUR ---
IV AND TELE DC'D. DISCHARGE INSTRUCTIONS DISCUSSED WITH PT. ALL QUESTIONS ANSWERED. PT DRESSED AND AWAITING RIDE.
[2022-03-17] MEDS ORDERED: ULTRAM 50MG TAB50 MG PO (15:34)
[2022-03-17 16:23] VITALS: BP 90/52; PULSE 71; TEMP 99
== END 2022-03-17 17:00 | disposition home or self-care (01) | DRG 602 ==
LOC: COL.ER 14:45 → SURG 18:11
PROVIDERS: Emergency Medicine; Registered Nurse; ADMIT Internal Medicine Nephrology
PROC: 5A1D70Z Performance of Urinary Filtration, Intermittent, Less than 6 Hours Per Day (ICD-10-PCS; principal; 2022-03-14)
DX: L03.317 Cellulitis of buttock (principal); N18.6 End stage renal disease; A09 Infectious gastroenteritis and colitis, unspecified; I12.0 Hypertensive chronic kidney disease with stage 5 chronic kidney disease or end stage renal disease; J98.11 Atelectasis; L02.31 Cutaneous abscess of buttock; D63.1 Anemia in chronic kidney disease; F32.A Depression, unspecified; E28.2 Polycystic ovarian syndrome; E11.22 Type 2 diabetes mellitus with diabetic chronic kidney disease; I45.10 Unspecified right bundle-branch block; Z20.822 Contact with and (suspected) exposure to COVID-19; K80.20 Calculus of gallbladder without cholecystitis without obstruction; E87.5 Hyperkalemia; R16.1 Splenomegaly, not elsewhere classified; I95.9 Hypotension, unspecified; K59.00 Constipation, unspecified; E83.39 Other disorders of phosphorus metabolism; Z87.891 Personal history of nicotine dependence; Z99.2 Dependence on renal dialysis; Z89.512 Acquired absence of left leg below knee; Z23 Encounter for immunization
CPT/HCPCS: A9270; J1170; J1756; J1815; J2270; J2405; J2543; J3370; J7030; J7050; P9016; Q5105; Q9967

== ENCOUNTER 2022-03-29 16:57 | Emergency (ER) | payer MEDICARE, MEDICAID ==
[~2022-03-29] VITALS: Ht 167.6 cm; Wt 104.5 kg
[~2022-03-29 16:57] MED LIST changes: +ATARAX 25MG25 MG/TAB PO; +CEPHALEXIN500 M1 PO; +COZAAR100 MG PO; +EMLA CREAM TOP; +ESTRACE0.5 MG PO; +LYRICA 25MG CAP25 MG PO; +LYRICA 50MG CAP50 MG PO; +OZEMPIC0.25 MG/0. SQ; +PHOS LO PO; +VANCOCIN H125 MG/CAP PO
[2022-03-29 17:03] VITALS: TEMP 97.1
[2022-03-29 17:33] LABS: BASO # 0.1 K/mm3 (0.0-0.2); BASO % 0.6 % (0.0-2.0); EOS % 0.2 % (0.0-4.0); GRAN # 8.3 K/mm3 (1.4-6.5); GRAN % 84.9 % (42.2-75.2); LYMPH # 0.9 K/mm3 (1.2-3.4); LYMPH % 8.6 % (20.0-51.0); MEAN CELL VOLUME 83 fl (80.0-100.0); MEAN CORPUSCULAR HGB CONC 31 g/dl (33.0-37.0); MEAN PLATELET VOLUME 9.2 fl (7.4-10.4); MONO # 0.5 K/mm3 (0.1-0.6); MONO % 5.4 % (1.7-9.3); PLATELET COUNT 194 K/mm3 (130-400); RED BLOOD COUNT 3.28 M/mm3 (4.10-5.30)
[2022-03-29 17:34] LABS: HEMATOCRIT 27.2 % (37.0-47.0); HEMOGLOBIN 8.3 g/dl (12.5-16.0); MEAN CORPUSCULAR HEMOGLOBIN 25 pg (27-31)
[2022-03-29 17:48] LABS: ALBUMIN 2.8 gm/dL (3.4-4.8); BILIRUBIN,TOTAL 0.5 mg/dL (0.2-1.2); CREATININE, serum 5.67 mg/dL (0.57-1.11); POTASSIUM 4.2 mmol/L (3.5-4.5); TOTAL PROTEIN 7.6 gm/dL (6.2-8.1)
[2022-03-29 22:56] VITALS: BP 107/50; PULSE 80
== END 2022-03-29 23:18 | disposition short-term general hospital (02) ==
LOC: COL.ER 16:57
PROVIDERS: Family Medicine
DX: L02.31 Cutaneous abscess of buttock (principal); I13.11 Hypertensive heart and chronic kidney disease without heart failure, with stage 5 chronic kidney disease, or end stage renal disease; E11.22 Type 2 diabetes mellitus with diabetic chronic kidney disease; N18.6 End stage renal disease; Z99.2 Dependence on renal dialysis
CPT/HCPCS: J2270; J2405; J3370; J7030; J7050

== ENCOUNTER 2023-03-07 09:24 | Outpatient (RCR) | payer MEDICARE, MEDICAID ==
[~2023-03-07] VITALS: Ht 167.6 cm; Wt 100.9 kg
[2023-03-07] VITALS (10 sets, daily range): BP systolic 102–135; BP diastolic 53–73; PULSE 64–74; TEMP 97.6–98.7
[~2023-03-07 09:24] MED LIST changes: +IPRATROPIUM BROM3 M1 IH; +LYRICA 75MG CAP75 MG PO; +OZEMPIC2 MG/0.75 PO; +PRIL40 PO; +ROXICODONE 55 MG/TAB PO
[2023-03-07] MEDS ORDERED: NS 250 ML IV SCH (11:00)
--- NOTE | 2023-03-07 15:30 | NUR ---
Pt tolerated transfusions without issue. She rested comfortably in rm 15 throughout. Meal tray was ordered. Respirations remain even and unlabored. IV DC'd by ARLETTE De Oliveira, who also assists pt up to wheelchair and down to entrance to meet her ride.
== END 2023-03-07 15:30 | disposition home or self-care (01) ==
LOC: EUO 09:24
DX: D50.0 Iron deficiency anemia secondary to blood loss (chronic) (principal)
CPT/HCPCS: J7050; P9016

== ENCOUNTER → 2023-11-23 | Outpatient (CLI) | payer MEDICARE, MEDICAID ==
[2023-11-23] VITALS (12 sets, daily range): BP systolic 124–149; BP diastolic 53–86; PULSE 66–77; TEMP 97.4
[~2023-11-23] VITALS: Ht 167.6 cm; Wt 103.3 kg
[~2023-11-23] MED LIST changes: +ASHWAGANDHA300 MG PO; +Midazolam 2 MG/2 ML VIAL IV SCH; +fentaNYL 50 MCG/ML 2 ML VIAL IV SCH
[2023-11-23 07:23] LABS: BASO # 0.1 K/mm3 (0.0-0.2); BASO % 1.1 % (0.0-2.0); EOS # 0.1 K/mm3 (0.0-0.7); EOS % 2.9 % (0.0-4.0); GRAN # 2.7 K/mm3 (1.4-6.5); HEMOGLOBIN 10.7 g/dl (12.5-16.0); LYMPH # 1.5 K/mm3 (1.2-3.4); LYMPH % 32.1 % (20.0-51.0); MEAN CELL VOLUME 91 fl (80.0-100.0); MEAN CORPUSCULAR HEMOGLOBIN 30 pg (27-31); MEAN CORPUSCULAR HGB CONC 33 g/dl (33.0-37.0); MEAN PLATELET VOLUME 9.1 fl (7.4-10.4); MONO # 0.2 K/mm3 (0.1-0.6); MONO % 4.2 % (1.7-9.3); PLATELET COUNT 105 K/mm3 (130-400); RED BLOOD COUNT 3.59 M/mm3 (4.10-5.30); REDCELL DISTRIBUTION WIDTH-CV 16.1 % (11.5-14.5)
[2023-11-23 07:33] LABS: HEMATOCRIT 32.8 % (37.0-47.0)
--- NOTE | 2023-11-23 09:38 | NUR ---
SPECIMEN COLLECTED AT 0808.
--- NOTE | 2023-11-23 10:42 | NUR ---
0900--PATIENT HAS COMPLETED HER RECOVERY PERIOD WITHOUT ANY ISSUES. IV REMOVED WITHOUT ISSUE. PATIENT IS AWAKE AND ALERT AND HAS EATEN AND HAD ICE CHIPS. PATIENT DENIES BEING IN ANY PAIN. PATIENT DRESSED HERSELF. ESCORTED PATIENT VIA WHEELCHAIR TO PATIENT ENTRANCE WITH ALL BELONGINGS. PATIENT ABLE TO GET INTO PASSENGER SEAT WITHOUT ISSUE OR ASSISTANCE. ALL NEEDS MET.
== END ==
LOC: COL.RAD 05:45
PROVIDERS: Internal Medicine
DX: D64.9 Anemia, unspecified (principal)
CPT/HCPCS: J2250; J3010